=== PATIENT | male | born 1980 | race Caucasian/White ===

== ENCOUNTER → 2018-04-19 07:42 | Outpatient (CLI) | payer OTHER, SELFPAY ==
[2018-04-19 08:36] LABS: Basophils # 0.1 K/mm3 (0-0.2); Basophils % 1.1 % (0.1-2.0); Eosinophils # 0.2 K/mm3 (0.0-0.4); Eosinophils % 2.6 % (0.1-12.0); Hematocrit 47.9 % (42.0-52.0); Lymphocytes # 2.1 K/mm3 (0.7-4.5); Mean Corpuscular HGB Conc 33.5 g/dL (31.8-35.4); Mean Corpuscular Hemoglobin 29.7 pg (27.0-31.2); Mean Corpuscular Volume 88.6 fl (80-94); Mean Platelet Volume 8.2 fl (7.4-10.4); Monocytes # 0.5 K/mm3 (0.1-1.0); Monocytes % 8.9 % (1.7-9.3); Neutrophils # 3.2 K/mm3 (1.8-7.8); Neutrophils % 52.4 % (37.0-80.0); Platelet Count 207 K/mm3 (142-424); Red Cell Distribution Width 12.5 % (11.5-17.5); White Blood Count 6.1 K/mm3 (4.8-10.8)
[2018-04-19 08:54] LABS: Hemoglobin A1C 5.5 % (0.0-7.0)
[2018-04-19 09:57] LABS: Alanine Aminotransferase 93 U/L (12-78); Albumin Level 3.8 gm/dL (3.4-5.0); Albumin/Globulin Ratio 1.3 (1.1-1.8); Alkaline Phosphatase 94 U/L (46-116); Anion Gap 11.4 mEq/L (5-15); Aspartate Amino Transferase 33 U/L (15-37); Bilirubin,Total 0.5 mg/dL (0.2-1.0); Blood Urea Nitrogen 10 mg/dL (7-18); Carbon Dioxide 26 mmol/L (21.0-32.0); Chloride 107 mmol/L (98-107); Chol/HDL Ratio 4.9 (1-3.5); Cholesterol 172 mg/dL (140-200); Creatinine,Serum 0.84 mg/dL (0.70-1.30); Estimated Glomerular Filt Rate 103 ml/min (>60); GFR (African American) 125 ML/MIN (>60); Globulin 2.9 gm/dl (1.3-3.2); Glucose 98 mg/dL (74-106); HDL Cholesterol 35 mg/dL (27-67); LDL Cholesterol 112 mg/dL (0-130); Potassium 4.4 mmoL/L (3.5-5.1); Sodium 140 mmol/L (136-145); T4 (Thyroxine) 8.2 ug/dl (4.7-13.3); Thyroid Stimulating Hormone 1.36 uIU/ml (0.358-3.740); Total Protein,Serum 6.7 gm/dL (6.4-8.2); Triglycerides 123 mg/dL (30-200); VLDL Cholesterol 25 mg/dL (0-40)
[2018-04-24 06:55] LABS: H. pylori Breath Test Negative (Negative); Vitamin D 25 Hydroxy 28.6 ng/mL (30.0-100.0)
== END ==
PROVIDERS: Visit Provider Nurse Practitioner Family
DX: R74.8 Abnormal levels of other serum enzymes (principal); R10.9 Unspecified abdominal pain; R53.83 Other fatigue; E78.2 Mixed hyperlipidemia
CPT/HCPCS: 36415; 80053; 80061; 82652; 83013; 83036; 84436; 84443; 85025

== ENCOUNTER → 2018-04-23 07:47 | Outpatient (CLI) | payer OTHER, SELFPAY ==
--- NOTE | 2018-04-23 07:48 | US_ITS ---
US gallbladder HISTORY: ITS.REASON: upper rt quad pain ORDERING PHYSICIAN: Frantz Mackay PATIENT AGE: 38 years Comparison: None FINDINGS: PANCREAS: Unremarkable. No obvious mass or abnormal fluid collection. No ductal dilatation LIVER: No focal liver lesions demonstrated. Increase echogenicity consistent with fatty liver. No intrahepatic biliary ductal dilatation evident RIGHT KIDNEY: Unremarkable. Normal size and echogenicity. No hydronephrosis GALLBLADDER: No gallstones, gallbladder wall thickening, pericholecystic fluid, or biliary dilatation. IMPRESSION: Negative gallbladder/right upper quadrant ultrasound Fatty liver
== END ==
PROVIDERS: PCP Nurse Practitioner Family; Visit Provider Nurse Practitioner Family
DX: R10.11 Right upper quadrant pain (principal)
CPT/HCPCS: 76705

== ENCOUNTER → 2019-03-13 15:08 | Outpatient (CLI) | payer OTHER, SELFPAY ==
--- NOTE | 2019-03-13 15:11 | US_ITS ---
US extremity LT limited HISTORY: ITS.REASON: enlarged lymp node ORDERING PHYSICIAN: Frantz Mackay APRN PATIENT AGE: 38 years COMPARISON: None TECHNIQUE: Routine ultrasound images of the left axilla were obtained. In the left axilla there is a somewhat ill-defined hypoechoic area measuring 2.7 cm. Air is no well-defined cortex of a lymph node or fatty hilum. There is also no associated vascular flow typically associated with a lymph node. This is fairly similar to some of the surrounding axillary fatty tissue. IMPRESSION: Left axillary 2.7 cm subtle abnormality described is more likely a focal area fat perhaps a lipoma. This does not appear to be consistent with a enlarged suspicious lymph node although, following clinical follow-up I would suggest if further evaluation is necessary CT scan of the upper chest to include the left axilla.
== END ==
PROVIDERS: PCP Nurse Practitioner Family; Visit Provider Nurse Practitioner Family
DX: R59.0 Localized enlarged lymph nodes (principal)
CPT/HCPCS: 76882

== ENCOUNTER → 2019-11-09 13:59 | Outpatient (CLI) | payer BC, SELFPAY ==
--- NOTE | 2019-11-09 14:04 | XR_ITS ---
PROCEDURE: XR CHEST 2V CLINICAL HISTORY: HEMOPTYSIS COMPARISON: No exams were available for comparison FINDINGS: The cardiomediastinal silhouette and pulmonary vascularity are within normal limits. The lungs are clear without infiltrates, suspicious nodules, or pleural effusions. No acute bony abnormalities. IMPRESSION: No acute findings. Dictated by: Yosef Curry MD 11/09/2019 15:38 Electronically signed by Yosef Curry MD in [place] 11/09/2019 15:38
== END ==
PROVIDERS: PCP Internal Medicine Adolescent Medicine; Visit Provider Internal Medicine Adolescent Medicine
DX: M54.5 Low back pain (principal); R04.2 Hemoptysis
CPT/HCPCS: 71046

== ENCOUNTER 2020-11-24 16:05 | Emergency (ER) | payer BC, SELFPAY ==
[2020-11-24 16:42] VITALS: BP 119/74; PULSE 77; RESP 14; TEMP 37.1; O2SAT 97; BMI 26.6
--- NOTE | 2020-11-24 17:21 | PC.NURSE ---
pt walked out of [facility] at 1701. tried to follow after pt but he was already gone. we have waited 20 minutes to see if he returns. no sign of pt. provider had not been in to see the pt yet.
[2020-11-24 17:23] VITALS: BP 000/00; PULSE 0; RESP 0; TEMP -17.7; TEMP 0; O2SAT 0
== END 2020-11-24 17:01 | disposition left against medical advice (07) ==
PROVIDERS: Emergency Provider Nurse Practitioner; PCP Internal Medicine Adolescent Medicine
DX: M54.5 Low back pain (principal); R10.31 Right lower quadrant pain; F17.210 Nicotine dependence, cigarettes, uncomplicated

== ENCOUNTER → 2021-08-14 07:46 | Outpatient (CLI) | payer BC, SELFPAY ==
[2021-08-14 08:30] VITALS: PULSE 72; PULSE 76
== END ==
PROVIDERS: PCP Internal Medicine Adolescent Medicine; Visit Provider Internal Medicine Adolescent Medicine
DX: R06.02 Shortness of breath (principal)
CPT/HCPCS: 94060; 94640; 94726; 94729

== ENCOUNTER → 2021-11-23 07:55 | Outpatient (CLI) | payer BC, SELFPAY | PROVIDERS: Visit Provider Surgery | DX: Z01.812 Encounter for preprocedural laboratory examination (principal); Z11.52 Encounter for screening for COVID-19; Z12.11 Encounter for screening for malignant neoplasm of colon | CPT/HCPCS: C9803; U0003; U0005 ==

== ENCOUNTER 2021-11-24 08:35 | Day surgery (SDC) | payer BC, SELFPAY ==
[2021-11-22 11:14] VITALS: BMI 31.9
--- NOTE | 2021-11-24 08:42 | P.PN_ITS ---
[facility] Anesthesia Checklist - Patient Identification Patient Identification: Arm Band - Structural Data Admitted From: Home Planned Operative Procedure/s: Colonoscopy Consent for Planned Operative Procedure(s) Verified: Yes - NPO Status Verified Time NPO: 00:00 - Airway Assessment C-Spine Mobility Assessed: Yes TMJ Mobility Assessed: Yes Dentition: Poor Dentition - Neurological Assessment Level of Consciousness: Awake Hx Seizures: No Numbness or tingling in extremities: No - Anesthesia Plan Anesthesia Risk discussed: Yes Anesthesia Plan: Verified ASA Class: II Anesthesia Type: MAC [facility] History I have reviewed the patient's past medical history: Yes Medical History: Reports:: Asthma, Gastroesophageal Reflux Disease(GERD), Migraine Denies:: Anxiety, Cancer, Depression, Diabetes Mellitus Type 1, Diabetes Mellitus Type 2, Internal Pacemaker, MRSA, Seizures *Have you ever received a pneumonia vaccine?: No *Have you received a flu vaccine this season?: No Anesthesia experience/problems:: None Laterality Cases: Right: Arthroscopy Knee Other Surgeries: Yes: Other. No: Pacemaker Amputation: No Fractures: No - *Social History Last grade of school completed: Advanced degree Smoking Status: Current every day smoker Tobacco Type: cigarettes # Packs/Day (cigarettes): 1 Alcohol Intake: never Alcohol Intake Frequency:: holidays/special occasions only Substance Use Type: denies use *Occupational Status:: employed Housing: house Household Members: family *Travel in the last 8 weeks: None - Psychiatric History Pschychiatric History:: Denies:: Anxiety, Depression Family Hx:: No significant family history
[2021-11-24 08:54] VITALS: BP 130/79; PULSE 75; RESP 18; TEMP 36.6; O2SAT 96
[2021-11-24 09:31] VITALS: O2SAT 96
--- NOTE | 2021-11-24 10:12 | HMH.SCOPE ---
- Procedure: Date: 11/24/21 Patient Date of :: 1980 Procedure Performed:: Total colonoscopy with polypectomy Indications:: Patient is a 41-year-old male referred by Dr. Agee for colonoscopy for rectal bleeding. He states that he has had some bleeding when he has a bowel movement for about 2 years. However this has become more significant recently. He does describe some soreness and burning when he has the symptoms. He also states that preceding the symptoms he has somewhat flatter stools. Performing Provider:: Herve Ko MD Referring Provider:: Rocky Agee MD Sedation:: MAC sedation Procedure:: Patient was taken to endoscopy procedure room. He was positioned in lateral decubitus position. Adequate intravenous sedation was achieved with anesthesia titration propofol. Digital exam was performed which revealed no evidence of any obvious fissure. Variable stiffness Olympus colonoscope was inserted via the anus. Is advanced to the cecum. Ileocecal valve and appendiceal orifice were clearly identified. Colonic preparation was fair with some liquid stools and extensive bubbles through the colon. Thorough irrigation and suctioning allowed for adequate visualization. Colonoscope was slowly withdrawn through the colon. He had a small diminutive sigmoid polyp which was removed with biopsy forceps. There was a distal sigmoid somewhat pedunculated appearing polyp removed with cold snare. Hemoclip was deployed to ensure hemostasis. Initially this polyp could not be retrieved and the colonoscope was readvanced to the right colon and slowly withdrawn. Ultimately the polyp was able to be retrieved in this manner as it had migrated retrograde. Rectosigmoid region there were several hyperplastic appearing polyps which were removed with cold biopsy forceps. Total of 3 polyps removed. There was a small rectal polyp removed with cold snare. Retroflexion within the rectum revealed internal hemorrhoids with some minor prolapse, nonbleeding. Colonoscope was withdrawn. Findings:: Polyps as noted above Rare sigmoid diverticulosis Internal hemorrhoids with minor prolapse Recommendations:: Source of his symptoms is likely hemorrhoids. These appear to be relatively minimal with some prolapse and likely amenable to medical treatment if necessary. Follow-up colonoscopy regarding polyps pending pathology. Complications:: None immediately apparent Estimated blood obtained (mL): 3
[2021-11-24 10:14] VITALS: BP 140/92; PULSE 87; RESP 16; TEMP 36.3; O2SAT 94
[2021-11-24 10:24] VITALS: BP 127/79; PULSE 79; RESP 18; TEMP 36.3; O2SAT 95
[2021-11-24 10:34] VITALS: BP 116/74; PULSE 80; RESP 18; TEMP 36.3; O2SAT 94
[2021-11-24 10:50] VITALS: BP 119/78; PULSE 71; RESP 18; TEMP 36.3; O2SAT 97
== END 2021-11-24 10:50 | disposition home or self-care (01) ==
LOC: OUTP 08:36
PROVIDERS: PCP Internal Medicine Adolescent Medicine; Visit Provider Surgery
PROC: 0DJD8ZZ Inspection of Lower Intestinal Tract, Via Natural or Artificial Opening Endoscopic (ICD-10-PCS; CPT 45385; principal; 2021-11-24 09:30)
DX: Z12.11 Encounter for screening for malignant neoplasm of colon (principal); K63.5 Polyp of colon; K57.32 Diverticulitis of large intestine without perforation or abscess without bleeding; K64.1 Second degree hemorrhoids; K62.1 Rectal polyp; J45.909 Unspecified asthma, uncomplicated; K21.9 Gastro-esophageal reflux disease without esophagitis; G43.909 Migraine, unspecified, not intractable, without status migrainosus; Z72.0 Tobacco use
CPT/HCPCS: 45385

== ENCOUNTER 2022-06-04 07:59 | Emergency (ER) | payer BC, SELFPAY ==
--- NOTE | 2022-06-04 08:16 | EXP.UTC ---
Discharge Plan Disposition Patient Disposition: Home, Self-Care Condition: Good Prescriptions Prescriptions: No Action omeprazole 40 mg capsule,delayed release(DR/EC) 40 mg PO DAILY fluticasone propion-salmeterol 28 PUFFS/50 MCG inhaler 1 inh IH BID peg 3350-electrolytes 4,000 ML recon soln 240 ml PO Q10M Rx Instructions: until fecal effluent is clear Referrals Follow up/Referrals: Matias Agee MD [Primary Care Provider] - See instructions Activity Restrictions/Add. Instructions Additional Instructions/Restrictions: *Monitor Temp, Over the counter Motrin or Tylenol as directed/as needed Tylenol every 4 hours and Motrin every 6 hours (as long as your family doctor has told you that you can take it) for fever or pain. and straight to ER if unable to lower temp less than 101.0 after medication given *Warm salt water gargles may help to soothe the throat *Throat Lozenges? *Warm fluids like tea with honey may help to soothe the throat? *Sleep elevated *Humidifier/Vaporizer Follow up IMMEDIATELY for new or worsening symptoms or no Noticeable improvement over the next 48-72 hours. 911 for difficulty breathing or swallowing You were tested for today for COVID19 your test result should be back in the next 24-48 hours, you may check your result on the [facility] Make sure to take your Vitamins Vit. C Vit D and Zinc if you can take them Clinical Impressions Clinical Impression: Viral syndrome, Encounter for laboratory testing for COVID-19 virus Stand Alone Forms Stand Alone Forms: Work/School Release Instructions Patient Instructions: Coronavirus Disease 2019, Preventing the Spread of Coronavirus Discharge Instructions, DI for Fever (Symptom) -- Adult Discharge ED Provider: Ro Phillip [facility] [place] HPI General Stated complaint: fever,chills,body aches Time Seen by Provider: 06/04/22 08:17 History of Present Illness Provider Complaint: Patient states that he has been having body aches, chills, fever, and headache States that he took an at home COVID test and it was positive but his work will not accept those so he had to come in and get tested here Related Data Home Medications Medication Instructions Recorded Confirmed omeprazole 40 mg capsule,delayed 40 mg PO DAILY GERD 05/14/19 11/24/21 release fluticasone 250 mcg-salmeterol 50 1 inh IH BID Asthma 11/22/21 11/24/21 mcg/dose blistr powdr for inhalation peg 3350-electrolytes 236 240 ml PO Q10M prep 11/22/21 11/24/21 gram-22.74 gram-6.74 gram-5.86 gram solution Allergies Allergy/AdvReac Type Severity Reaction Status Date / Time No Known Allergies Allergy Verified 11/24/21 08:52 PFSH PFSH Social History Smoking Status: Current every day smoker tobacco type: cigarettes packs per day: 1 second hand exposure: Yes alcohol intake: never substance use type: denies use current occupational status: employed Travel in the last 8 weeks: None household members: family housing: house 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 caffeine: Yes ROS Obtained: Yes All systems reviewed & no additional complaints except as documented and Yes Systems reviewed as appropriate & no additional complaints except as documented Constitutional Constitutional: Reports system reviewed and no additional complaints, except as documented, Reports as per HPI, Reports body ache, Reports chills, Reports fever(s) and Reports headache(s) ENT Ears, Nose, Mouth, and Throat: Reports system reviewed and no additional complaints, except as documented, Reports as per HPI and Reports headache(s) Cardiovascular Cardiovascular: Reports system reviewed and no additional complaints, except as documented and Reports as per HPI Respiratory Respiratory: Reports system reviewed and no additional complaints, except as documented, Reports as per HPI, Denies shortness of breath, Denies chest congestion and Denies cough Neurol
[2022-06-04 08:21] VITALS: BP 129/84; PULSE 73; RESP 16; TEMP 37.3; O2SAT 98; BMI 29.5
[2022-06-04 08:24] VITALS: BP 138/84; PULSE 73; RESP 16; TEMP 37.3
== END 2022-06-04 08:24 | disposition home or self-care (01) ==
PROVIDERS: Emergency Provider Nurse Practitioner; PCP Internal Medicine Adolescent Medicine
DX: U07.1 COVID-19 (principal); F17.210 Nicotine dependence, cigarettes, uncomplicated
CPT/HCPCS: 99212; C9803; G0463; U0003; U0005

== ENCOUNTER 2023-06-06 08:00 | Emergency (ER) | payer BC, SELFPAY ==
[2023-06-06 08:05] VITALS: BP 113/86; PULSE 82; RESP 20; TEMP 36.7; O2SAT 98; BMI 29.5
--- NOTE | 2023-06-06 08:20 | XR_ITS ---
FINAL REPORT CLINICAL HISTORY: pain in lower back COMPARISON: None FINDINGS: 3 views of the lumbar spine were obtained. There is no evidence of fracture or dislocation. There are mild hypertrophic changes of degenerative disc disease. There is mild to moderate anterior osteophyte formation at L4-5 and L5-S1. IMPRESSION: Degenerative changes without acute bony abnormality. Reviewed, Interpreted and Dictated by Markell Clemente MD Transcribed by Angeline Oropeza Authenticated and [facility]
--- NOTE | 2023-06-06 08:21 | EXP.UTC ---
Discharge Plan Disposition Patient Disposition: Home, Self-Care Condition: Good Prescriptions Prescriptions: New etodolac 200 mg capsule 200 mg PO Q8H PRN (Reason: pain) Qty: 20 0RF cyclobenzaprine 10 mg tablet 10 mg PO TID PRN (Reason: muscle spasm) Qty: 15 0RF methylprednisolone [Medrol (Jose)] 4 mg tablets,dose pack See Rx Instructions .Route .COMPLEX 6 Days Qty: 21 0RF Rx Instructions: taper pack; No Action omeprazole 40 mg capsule,delayed release(DR/EC) 40 mg PO DAILY fluticasone propion-salmeterol 28 PUFFS/50 MCG inhaler 1 inh IH BID peg 3350-electrolytes 4,000 ML recon soln 240 ml PO Q10M Rx Instructions: until fecal effluent is clear Referrals Follow up/Referrals: Brooks Lopez MD [Primary Care Provider] - See instructions Activity Restrictions/Add. Instructions Additional Instructions/Restrictions: *Etodolac vesta 8 hours with meal as needed for pain/inflammation *Remember you had a Toradol shot in the clinic today, which is similar to Etodolac so do not start for the next 8 hours *Not additional anti-inflammatory like Ibuprofen, motrin, aleve, advil with the above amount of Etodolac. You can still take Tylenol every 4 hours as needed if you need something else for pain *Ice 20 minutes every 2 hours for the first 48 hours after the initial injury followed by moist heat every 20 minutes 3-4 times a day to affected area *Muscle relaxer every 8 hours as needed for muscle spasms but remember, it WILL cause drowsiness You cannot take it and drive, operate machinery or care for small children. Start oral Medrol Dose pack tomorrow *Keep this area active, no movement leads to more stiffness, However take it easy and avoid heavy lifting pushing or pulling *Follow up with you family doctor if no improvement for further treatment Clinical Impressions Clinical Impression: Back pain Qualifiers: Back pain location: low back pain Chronicity: acute Back pain laterality: right Sciatica presence: unspecified whether sciatica present Qualified Code(s): M54.50 - Low back pain, unspecified Stand Alone Forms Stand Alone Forms: Work/School Release Instructions Patient Instructions: Low Back Pain, DI for Low Back Pain Discharge ED Provider: Ro Phillip [facility] HPI General Stated complaint: Back pain radiating, pain in right leg Mode of Arrival: Ambulatory Source of Information: Patient Limitations: No Limitations Time Seen by Provider: 06/06/23 08:21 Description of Symptoms (Recalled from Triage Doc. by RN): PATIENT C/O LOWER BACK PAIN THAT IS MAINLY ON RIGHT SIDE THAT RADIATES AROUND TO FRONT. HE STATES HE HAS HAD MILD BACK PAIN X 1 WEEK, BUT DID A TWISTING MOTION WHILE GETTING SOMETHING OUT OF TRUNK OF CAR LAST NIGHT AND PAIN BECAME MORE SEVERE. HEENT Symptoms (Recalled from RN notes): No Resp Symptoms (Recalled from RN notes): No Skin Symptoms (Recalled from RN notes): No MS Symptoms (Recalled from RN notes): Yes Functional Status (Recalled from RN notes): WNL History of Present Illness Provider Complaint: Patient states that he has a bad back States that he has been having mild pain in his lower back mainly on the right side when last night he pulled something out of the trunk of his car and he did a twisting motion and the pain become more severe States that it is in his lower back and goes to the right side into his upper leg States that he wasnt able to sleep much last night due to the pain so he came in this am to get checked Denies loss of control of bowel or bladder Related Data Home Medications Medication Instructions Recorded Confirmed omeprazole 40 mg capsule,delayed 40 mg PO DAILY GERD 05/14/19 06/06/23 release fluticasone 250 mcg-salmeterol 50 1 inh IH BID Asthma 11/22/21 11/24/21 mcg/dose blistr powdr for inhalation peg 3350-electrolytes 236 240 ml PO Q10M prep 11/22/21 11/24/21 gram-22.74 gram-6.74 gram-5.86 gram solution Pre
[2023-06-06 09:06] VITALS: BP 113/86; PULSE 82; RESP 20; TEMP 36.7; O2SAT 98
== END 2023-06-06 09:10 | disposition home or self-care (01) ==
PROVIDERS: Emergency Provider Nurse Practitioner; PCP Family Medicine
DX: M54.50 Low back pain, unspecified (principal); F17.210 Nicotine dependence, cigarettes, uncomplicated; X50.1XXA Overexertion from prolonged static or awkward postures, initial encounter
CPT/HCPCS: 72100; 96372; 99212; 99214; G0463

== ENCOUNTER 2024-03-07 12:28 | Outpatient (CLI) | payer BC, SELFPAY ==
--- NOTE | 2024-03-07 | XR_ITS ---
PROCEDURE INFORMATION: Exam: XR Left Foot Exam date and time: 03/07/2024 12:37 PM Age: 43 years old Clinical indication: Pain; Heel; Left TECHNIQUE: Imaging protocol: Radiologic exam of the left foot. Views: 3 or more views. COMPARISON: No relevant prior studies available. FINDINGS: Bones/joints: Small posterior calcaneal bone spur. Soft tissues: Normal. IMPRESSION: Small posterior calcaneal bone spur.
== END 2024-03-07 23:59 | disposition home or self-care (01) ==
PROVIDERS: PCP Family Medicine; Visit Provider Family Medicine
DX: M79.672 Pain in left foot (principal); M72.2 Plantar fascial fibromatosis
CPT/HCPCS: 73630

== ENCOUNTER 2024-05-05 07:03 | Emergency (ER) | payer BC, SELFPAY ==
--- NOTE | 2024-05-05 07:10 | PC.NURSE ---
Dr. Moreno at [facility] for pt eval
[2024-05-05 07:15] VITALS: BMI 27.9
--- NOTE | 2024-05-05 07:16 | US_ITS ---
FINAL REPORT TECHNIQUE: Ultrasound images of the testicles were obtained bilaterally. Color Doppler images were obtained. CLINICAL HISTORY: r/o torsion COMPARISON: None FINDINGS: The testicles are normal in size and echotexture bilaterally. Arterial flow is identified bilaterally. A varicocele is present in the left scrotum. There is a echogenic focus with posterior acoustical shadowing on the inner surface of the wall of the left scrotum, that has an appearance most consistent with a calcification. This may be secondary to prior posttraumatic change. There are small hydroceles bilaterally. IMPRESSION: No evidence of testicular mass or torsion. Echogenic focus as described above on the inner surface of the wall of the left scrotum, which appears to represent a dense calcification. This may be secondary to prior posttraumatic change. Left sided varicocele is present. Reviewed, Interpreted and Dictated by Markell Clemente MD Transcribed by Lamar Goldstein Authenticated and [facility]
[2024-05-05 07:22] LABS: Lactate Venous 1.9 mmol/L (0.4-2.0); VBG Base Excess -0.5 mmol/L (-2.4-2.3); VBG HCO3 23.9 mmol/L (23-30); VBG Oxygen Saturation 99.2 % (50-70); VBG PCO2 37.3 mmol/L (35-51); VBG PH 7.42 mmol/L (7.31-7.41); VBG PO2 148.8 mmol/L (28-40)
--- NOTE | 2024-05-05 07:22 | HMH.EDGENADL ---
Discharge Plan Disposition Patient Disposition: Home, Self-Care Condition: Good Prescriptions Prescriptions: New tamsulosin [Flomax] 0.4 mg capsule 0.4 mg PO DAILY Qty: 7 0RF ketorolac 10 mg tablet 10 mg PO Q8H PRN (Reason: pain) 5 Days Qty: 15 0RF ondansetron 4 mg tablet,disintegrating 4 mg PO Q6H PRN (Reason: nausea and vomiting) Qty: 10 0RF oxycodone 5 mg tablet 5 mg PO Q6H PRN (Reason: pain) Qty: 10 0RF No Action omeprazole 40 mg capsule,delayed release(DR/EC) 40 mg PO DAILY fluticasone propion-salmeterol 28 PUFFS/50 MCG inhaler 1 inh IH BID peg 3350-electrolytes 4,000 ML recon soln 240 ml PO Q10M Rx Instructions: until fecal effluent is clear etodolac 200 mg capsule 200 mg PO Q8H PRN (Reason: pain) Qty: 20 0RF cyclobenzaprine 10 mg tablet 10 mg PO TID PRN (Reason: muscle spasm) Qty: 15 0RF methylprednisolone [Medrol (Jose)] 4 mg tablets,dose pack See Rx Instructions .Route .COMPLEX 6 Days Qty: 21 0RF Rx Instructions: taper pack; Referrals Follow up/Referrals: Brooks Lopez MD [Primary Care Provider] - See instructions Activity Restrictions/Add. Instructions Additional Instructions/Restrictions: Call your family doctor to establish care for this visit to the emergency department and schedule follow-up within 48 hours to ensure improvement. If you have any worsening of your condition or any other concerning signs or symptoms, return to the emergency department or your primary care doctor for further evaluation. Meds as prescribed. Clinical Impressions Clinical Impression: Calcium nephrolithiasis Instructions Patient Instructions: DI for Urinary Tract Infection (UTI), DI for Urinary Tract Infection in Children Print Language Print Language: Gambian Discharge ED Provider: Eugene Moreno General Adult HPI General Chief complaint: Urogenital-Male Stated complaint: lower abd, back pain, nausea Time Seen by Provider: 05/05/24 07:18 History of Present Illness HPI narrative: Please note that above description of symptoms, in this electronic medical record under categorization of recalled from ER triage doctor by RN are reflective of an initial nursing assessment, however, is not reflective of my full history and physical exam that was personally taken and clarified. Consequentially, this preceding description of symptoms, which may include the patient's categorized chief complaint in the EMR, do not reflect my personal clinical impression, and the ultimate description of history of present illness and patient stated complaints should be deferred to this section of the note. Unless stated otherwise or congruent with this section of the note, additional signs, symptoms, or incongruence should be interpreted as inaccurate with my clinical impression. Related Data Home Medications ?Medication ?Instructions ?Recorded ?Confirmed omeprazole 40 mg capsule,delayed 40 mg PO DAILY GERD 05/14/19 06/06/23 release fluticasone 250 mcg-salmeterol 50 1 inh IH BID Asthma 11/22/21 11/24/21 mcg/dose blistr powdr for inhalation peg 3350-electrolytes 236 240 ml PO Q10M prep 11/22/21 11/24/21 gram-22.74 gram-6.74 gram-5.86 gram solution Previous Rx's ?Medication ?Instructions ?Recorded cyclobenzaprine 10 mg tablet 10 mg PO TID PRN muscle spasm #15 06/06/23 tabs etodolac 200 mg capsule 200 mg PO Q8H PRN pain #20 caps 06/06/23 methylprednisolone 4 mg tablets in See Rx Instructions .Route 06/06/23 a dose pack (Medrol (Jose)) .COMPLEX 6 days #21 tabs ketorolac 10 mg tablet 10 mg PO Q8H PRN pain 5 days #15 05/05/24 tabs ondansetron 4 mg disintegrating 4 mg PO Q6H PRN nausea and 05/05/24 tablet vomiting #10 tabs oxycodone 5 mg tablet 5 mg PO Q6H PRN pain #10 tabs 05/05/24 tamsulosin 0.4 mg capsule (Flomax) 0.4 mg PO DAILY #7 caps 05/05/24 Allergies Allergy/AdvReac Type Severity Reaction Status Date / Time No Known Allergies Allergy Verified 06/04/22 08:23 [facility] Disclaimer: The information contained in this section may have been updated after the patient was seen, as this information can be updated by other users. 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 caffeine: Yes ROS Obtained: Yes All systems reviewed & no additional complaints except as documented Physical Exam General General appearance: alert and in distress Head Head exam: atraumatic and normocephalic Eye Eye exam: Present normal appearance, PERRL and EOMI Neck Neck exam: Present normal inspection, full ROM and trachea midline Respiratory Respiratory exam: Absent respiratory distress, wheezes, stridor, accessory muscle use or prolonged expiratory phase Cardiovascular Cardiovascular exam: Present other (Pulses equal symmetric in upper and lower extremities) Abdominal Exam Abdominal exam: Present soft; Absent distention, tenderness or pulsatile mass Extremities Exam Extremities exam: Absent edema Neurological Exam Neurological exam: Present alert, oriented X3 and CN II-XII intact; Absent motor sensory deficit Skin Skin exam: Present warm and dry; Absent diaphoresis or erythema Medical Decision Making Medical Records Medical records reviewed: Yes I reviewed the patient's medical records. Mikey Inquiry Pt receiving controlled substance: No Mikey was queried for this patient: No Vital Signs: 05/05/24 07:27 05/05/24 07:37 05/05/24 09:35 Temperature 98.1 F Temperature Source Oral Pulse Rate 67 52 L Pulse Rate [Left Radial] 102 H Respiratory Rate 20 Blood Pressure 139/88 126/82 Blood Pressure [Right Arm] 130/84 Blood Pressure Mean 105 99 Blood Pressure Mean [Right Arm] 99 Blood Pressure Source Blood Pressure Position 02 Sat by Pulse Oximetry 96 99 97 Oxygen Delivery Method Room Air Room Air Room Air 05/05/24 10:34 Temperature 98.2 F Temperature Source Oral Pulse Rate 60 Pulse Rate [Left Radial] Respiratory Rate 20 Blood Pressure 136/68 Blood Pressure [Right Arm] Blood Pressure Mean Blood Pressure Mean [Right Arm] Blood Pressure Source Automatic Cuff Blood Pressure Position Sitting 02 Sat by Pulse Oximetry Oxygen Delivery Method Room Air Lab Data Lab Results 05/05/24 07:15: WBC 11.7 H, RBC 5.44, Hgb 16.3, Hct 50.5, MCV 92.9, MCH 30.0, MCHC 32.3, RDW 13.4, Plt Count 278, MPV 8.0, Neut % (Auto) 48.9, Lymph % (Auto) 37.3, Ross % (Auto) 9.3, Eos % (Auto) 3.4, Baso % (Auto) 1.1, Neut # (Auto) 5.7, Lymph # (Auto) 4.4, Ross # (Auto) 1.1 H, Eos # (Auto) 0.4, Baso # (Auto) 0.1, Sodium 140, Potassium 4.0, Chloride 110 H, Carbon Dioxide 22, Anion Gap 12.0, BUN 7 L, Creatinine 0.90, Estimated Creat Clear 125, Estimated GFR 92, Est GFR ( Amer) 111, Glucose 107 H, Calcium 8.9, Total Bilirubin 0.6, AST 35, ALT 37, Alkaline Phosphatase 76, Total Protein 7.2, Albumin 4.6, Globulin 2.6, Albumin/Globulin Ratio 1.8 05/05/24 07:16: Urine Color Yellow, Urine Appearance Clear, Urine pH 6.0, Ur Specific [place] >= 1.030, Urine Protein 1+, Urine Glucose (UA) Negative, Urine Ketones Negative, Urine Blood 3+, Urine Nitrate Negative, Urine Bilirubin 1+ A, Urine Urobilinogen 0.2, Ur Leukocyte Esterase Negative, Urine RBC 20-50, Urine WBC Occasional, Ur Squamous Epith Cells Occasional, Urine Bacteria Trace, Hyaline Casts Occasional 05/05/24 07:18: VBG pH 7.42 H, VBG pCO2 37.3, VBG pO2 148.8 H, VBG HCO3 23.9, VBG Total CO2 25.0, VBG O2 Saturation 99.2 H, VBG Base Excess -0.5, VBG Lactic Acid 1.9 05/05/24 07:15 05/05/24 07:15 Orders (Tests/Meds): ED MEDICATIONS Discontinued Medications Generic Name Dose Route Start Last Admin Trade Name Freq PRN Reason Stop Dose Admin Hydromorphone HCl 1 mg 05/05/24 07:16 05/05/24 07:32 Hydromorphone 2mg/Ml Syringe IV 05/05/24 07:17 1 mg ONCE ONE Administration Lactated Ringer's 1,000 mls @ 999 mls/hr 05/05/24 07:19 05/05/24 07:32 Lactated Ringer's 1000 Ml Bag IV 05/05/24 08:19 999 mls/hr .Q1H1M ONE Administration Iopamidol 75 ml 05/05/24 09:17 05/05/24 09:18 Iopamidol-370 (76%);100ml Bottle IV 05/05/24 09:18 75 ml ONCE ONE Administration Ketorolac Tromethamine 15 mg 05/05/24 07:19 05/05/24 07:31 Ketorolac 30mg/Ml Vial IV 05/05/24 07:20 15 mg ONCE ONE Administration Ketorolac Tromethamine 15 mg 05/05/24 09:39 05/05/24 09:44 Ketorolac 30mg/Ml Vial IV 05/05/24 09:40 15 mg ONCE ONE Administration Ondansetron HCl 4 mg 05/05/24 07:19 05/05/24 07:32 Ondansetron 4mg/2ml Vial IV 05/05/24 07:20 4 mg ONCE ONE Administration Sodium Chloride 10 ml 05/05/24 09:17 05/05/24 09:18 Sodium Chloride 0.9% 10ml Syr (Rad Only) IV 05/05/24 09:18 10 ml ONCE ONE Administration ORDERS Category Date Time Status CT abdomen pelvis w con Stat Cat Scan 05/05/24 09:06 Taken Complete Blood Count Auto Diff Stat Lab 05/05/24 07:15 Completed Comprehensive Metabolic Panel Stat Lab 05/05/24 07:15 Completed Urinalysis and Microscopic Stat Lab 05/05/24 07:16 Completed Venous Blood Gas Stat RT 05/05/24 07:18 Completed US Testicular Stat Ultrasound 05/05/24 07:16 Completed Medical Decision Narrative: 44-year-old male no relevant medical history presenting with left testicular pain. Started about 45 minutes prior to arrival. States that it is in his left testicle, feels like everything is being pulled out. Patient states his last bowel movement was normal for him last night, no bleeding, burning, or any other urinary symptoms. No fevers or chills. Pain today is maximal in intensity at onset, associated with vomiting, diaphoresis. Has not noticed anything that makes the pain better. History was obtained via conversation with patient and significant other. On arrival, patient hemodynamically stable, alert, oriented x4, appropriate, GCS 15, moving all extremities spontaneously, pupils equal and reactive to light. Full physical exam performed and significant for patient is an obvious mild distress secondary to pain. Pale, diaphoretic, holding vomitus bag in his hand. Intermittently standing up, sitting down trying to get comfortable. No flank tenderness. No abdominal tenderness. exam normal. Cremasteric reflex intact, no testicular swelling, tenderness, or abnormality. Differential includes torsion, UTI, nephrolithiasis, testicular abscess, testicular fracture, hernia, among others. Patient placed on continuous cardiac monitoring and continuous pulse ox with initial blood pressure 139/88, heart rate 67, saturation 96% on room air. Patient was given 1 mg Dilaudid, 15 mg Toradol for symptomatic management and correction of underlying abnormalities. Workup independently interpreted and significant for mild leukocytosis, nonactionable chemistry. Mild respiratory alkalosis on VBG. Patient's urinalysis with blood and protein. On independent interpretation of imaging, nonactionable scrotal ultrasound. Because hematuria as well as negative ultrasound, CT scan was ordered. Patient has 1 mm stone at UVJ. See radiology read for full review of final results. On reevaluation, patient feeling much better, intermittently having these pains. Another 15 mg of Toradol was given. This most likely represents nephrolithiasis. Just prior to discharge, patient stating that he is in pain and feeling nauseated again, 5 mg oxycodone and 4 mg Zofran was administered. Because patient at baseline without signs or symptoms of clinical decompensation, deemed appropriate for discharge. Results were relayed to patient who voiced understanding and were agreeable to outpatient management and follow up. I discussed my clinical impression with patient and answered all questions. At this time, the evidence for any other entities in the differential is insufficient to warrant any further testing or ED observation. This was explained as well. Advisory was given that persistent or worsening symptoms require further evaluation. I confirmed the understanding of this discussion. Flomax, oxycodone, Toradol, Zofran sent to the pharmacy. Close return precautions given. Urology outpatient follow-up was recommended. Design Verification Engineer disclaimer Much of this encounter note is an electronic metal riveting machine operator spoken language to printed text. Electronic metal riveting machine operator of the spoken language may permit errors. Although I have reviewed the note, some errors may still exist. Critical Care Critical Care Time Critical Care Time: No
[2024-05-05 07:24] LABS: Basophils # 0.1 K/mm3 (0-0.2); Basophils % 1.1 % (0.1-2.0); Eosinophils # 0.4 K/mm3 (0.0-0.4); Eosinophils % 3.4 % (0.1-12.0); Hematocrit 50.5 % (42.0-52.0); Hemoglobin 16.3 g/dL (14.1-18.0); Lymphocytes # 4.4 K/mm3 (0.7-4.5); Lymphocytes % 37.3 % (10-50); Mean Corpuscular HGB Conc 32.3 g/dL (31.8-35.4); Mean Corpuscular Volume 92.9 fl (80-94); Monocytes # 1.1 K/mm3 (0.1-1.0); Monocytes % 9.3 % (1.7-9.3); Neutrophils # 5.7 K/mm3 (1.8-7.8); Neutrophils % 48.9 % (37.0-80.0); Platelet Count 278 K/mm3 (142-424); Red Blood Count 5.44 M/mm3 (4.60-6.20); Red Cell Distribution Width 13.4 % (11.5-17.5); White Blood Count 11.7 K/mm3 (4.8-10.8)
[2024-05-05 07:27] VITALS: BP 139/88; PULSE 67; O2SAT 96
--- NOTE | 2024-05-05 07:29 | PC.NURSE ---
Pt gone to RAD via wheelchair for u/s
[2024-05-05 07:30] LABS: Albumin Level 4.6 g/dl (3.5-5.0); Chloride 110 mmol/L (98-107); Sodium 140 mmol/L (136-145)
[2024-05-05] MEDS: KETOROLAC 30MG/ML VIAL 15 MG IV ×2 (07:31→09:44)
[2024-05-05] MEDS: LACTATED RINGERS 1000ML 1,000 ML 999 ML IV (07:32)
[2024-05-05] MEDS: ONDANSETRON 4MG/2ML VIAL 4 MG IV ×2 (07:32→11:37)
[2024-05-05] MEDS: HYDROMORPHONE 2MG/ML SYRINGE 1 MG IV (07:32)
[2024-05-05 07:33] LABS: Alanine Aminotransferase 37 U/L (12-78); Albumin/Globulin Ratio 1.8 (1.1-1.8); Alkaline Phosphatase 76 U/L (38-126); Aspartate Amino Transferase 35 U/L (17-59); Bilirubin,Total 0.6 mg/dl (0.2-1.3); Blood Urea Nitrogen 7 mg/dl (9-20); Calcium 8.9 mg/dl (8.4-10.2); Carbon Dioxide 22 mmol/L (22.0-30.0); Creatinine Clearance Estimated 125 mL/min (50-200); Estimated Glomerular Filt Rate 92 ml/min (>60); GFR (African American) 111 ML/MIN (>60); Globulin 2.6 g/dL (1.3-3.2); Glucose 107 mg/dl (74-100); Total Protein,Serum 7.2 g/dl (6.3-8.2)
[2024-05-05 07:37] VITALS: BP 130/84; PULSE 102; RESP 20; TEMP 36.7; O2SAT 99; BMI 15.2
--- NOTE | 2024-05-05 07:50 | PC.NURSE ---
Pt returned to room from RAD
[2024-05-05 08:29] LABS: Microscopic, Urine URINE MICROSCOPIC (MICROSCOPIC)
[2024-05-05 08:33] LABS: Appearance,Urine CLEAR (Clear); Blood, Urine 3+ (Negative); Color,Urine YELLOW (Yellow); Glucose,Urine (UA) Negative (Negative); Ketones,Urine Negative (Negative); Leukocyte Esterase,Urine Negative (Negative); Nitrate,Urine Negative (Negative); Protein,Urine 1+ (Negative); Specific Gravity, Urine >= 1.030 (1.005-1.030); Urobilinogen,Urine 0.2 EU/dl (0.2)
[2024-05-05 08:36] LABS: Bilirubin,Urine 1+ (Negative)
[2024-05-05 08:50] LABS: Bacteria,Urine Trace /lpf; Hyaline Casts,Urine Occasional #/lpf (0); RBC,Urine 20-50 #/hpf (0-3); Squamous Epithelial Cell,Urine Occasional #/hpf (0-5); WBC,Urine Occasional #/hpf (0-3)
--- NOTE | 2024-05-05 09:06 | CT_ITS ---
FINAL REPORT TECHNIQUE: After the administration of intravenous contrast, axial images were obtained through the abdomen and pelvis by computed tomography. The study was performed with techniques to keep radiation dose as low as reasonably achievable, (ALARA). Individual dose reduction techniques using automated exposure control or adjustment of mA and/or kV according to the patient's size were employed. CLINICAL HISTORY: L groin pain and hematuria COMPARISON: None FINDINGS: Abdomen: There is a noncalcified nodule in the inferior right upper lobe measuring 6 mm and best seen on image 6 of series 3. There is mild fatty infiltration of the liver. The gallbladder is contracted. The spleen, pancreas, adrenals and kidneys appear unremarkable. The aorta is normal in caliber. There is no free fluid or adenopathy. Pelvis: The appendix is normal. Scattered diverticula are seen in the sigmoid colon. There is a 2 mm stone in the left UVJ best seen on image 114 of series 3. There is minimal prominence of the left ureter. The urinary bladder is unremarkable. There is no free fluid or adenopathy. There are advanced changes of degenerative disc disease in the lower lumbar spine. There is high-grade bilateral neuroforaminal compromise at L5-S1. IMPRESSION: 2 mm stone left UVJ with minimal prominence of the left ureter. Noncalcified right upper lobe nodule. Recommend CT chest in 6 to 12 months. Reviewed, Interpreted and Dictated by Markell Clemente MD Transcribed by Angeline Oropeza Authenticated and [facility]
[2024-05-05] MEDS: SODIUM CHLORIDE 0.9% 10ML SYR (RAD ONLY) 10 ML IV (09:18)
[2024-05-05] MEDS: IOPAMIDOL-370 (76%);100ML BOTTLE 75 ML IV (09:18)
[2024-05-05 09:35] VITALS: BP 126/82; PULSE 52; O2SAT 97
[2024-05-05 10:34] VITALS: BP 136/68; PULSE 60; RESP 20; TEMP 36.8; O2SAT 98
[2024-05-05 10:51] VITALS: BP 138/68; PULSE 60; O2SAT 99
--- NOTE | 2024-05-05 10:58 | PC.NURSE ---
pt states I'm not leaving here unless I get pain meds to go home with. I will sit here all day until I pass it. Dr Moreno aware.
--- NOTE | 2024-05-05 11:09 | PC.NURSE ---
Dr. Moreno at to speak with pt/family
--- NOTE | 2024-05-05 11:10 | PC.NURSE ---
dr ernandez at bedside talking to pt.
[2024-05-05] MEDS: OXYCODONE 5MG IMMEDIATE RELEASE TABLET 5 MG PO (11:37)
[2024-05-07 07:16] LABS: Neisseria gonorrhoeae, NAA Negative (Negative)
== END 2024-05-05 11:47 | disposition home or self-care (01) ==
PROVIDERS: Emergency Provider Emergency Medicine; PCP Family Medicine
DX: N50.812 Left testicular pain (principal); N20.1 Calculus of ureter; M54.59 Other low back pain
CPT/HCPCS: 74177; 76870; 80053; 81001; 82803; 85025; 87491; 87591; 96361; 96374; 96375; 96376; 99285; J1170; J1885; J2405; J7120; Q9967

== ENCOUNTER → 2024-10-05 07:06 | Outpatient (CLI) | payer BC, SELFPAY | LOC: SL 07:07 | PROVIDERS: PCP Family Medicine; Visit Provider Family Medicine | DX: R06.83 Snoring (principal); R06.81 Apnea, not elsewhere classified | CPT/HCPCS: G0399 ==

== ENCOUNTER 2025-03-19 08:23 | Outpatient (CLI) | payer BC, SELFPAY ==
--- OUTSIDE RECORDS SUMMARY | 2024-09-07 07:30 | XMS_ITS ---
Author Organization [facility] Address 1210 [facility] 36 [facility] [address] [phone] Care Team Providers Care Character Actor Name Role Phone Brooks Lopez Unavailable [phone] Allergies No Known Allergies REASON FOR VISIT [...] every day smoker 1 PPD Vital Signs Weight 199.4 lbs 09/07/2024 Blood pressure systolic 120 mm Hg 09/07/20 24 Blood pressure diastolic 72 mm Hg 024 Heart Rate 85 /min 09/07/2024 Height 69 in 09/07/2024 BMI 29.44 kg/m2 09/07/2024 Encounters Encounter Location Date Provider Diagnosis [facility] 12[address] [facility] 36 [facility] [address] [phone] 09/07/2024 Brooks Lopez Left-sided low back pain [...] Notes * KENDALL BOONEOB:1980 (44 yo M)Acc No.[id number]:09/07/2024 Progress Notes Patient: DANIEL ALICEA Provider: Leanna Lopez M.D. :1980 A ge:44 Y S ex:Male Date:09/07/2024 Address:[address] [place] [address], [facility] Subjective: * Chief Complaints: * 1 . [...] * Images: Billing Information: * Visit Code: 12294 Office Visit, Est Pt., Level 3. * Procedure Codes: * Electronic signature of Sabine Lopez MD on 03/19/2025 at 08:27 AM EDT Sign off status: Pending * Provider: Leanna Lopez M.D. Date: 1 11/08/2023 Generated for Misa martini/Horace/Ashwini on: 0 03/19/2025 08:27 AM EDT History and Physical Notes * [...]
--- OUTSIDE RECORDS SUMMARY | 2024-09-25 06:30 | XMS_ITS ---
Author Organization [facility] Address 1210 [facility] 36 [facility] [address] [phone] Care Team Providers Care Early Childhood Lead Teacher Name Role Phone Jessica Brooks Unavailable [phone] Allergies No Known Allergies REASON FOR VISIT [...] day smoker 1 PPD Vital Signs Weight 202 lbs 09/25/2024 Blood pressure systolic 120 mm Hg 09/25/19 25 Blood pressure diastolic 78 mm Hg 025 Heart Rate 90 /min 09/25/2024 Height 69 in 09/25/2024 BMI 29.83 kg/m2 09/25/2024 Encounters Encounter Location Date Provider Diagnosis [facility] 12[address] [facility] 36 [facility] [address] [phone] 09/25/2024 Brooks Lopez Left-sided low back pain [...] Notes * KENDALL BOONEOB:1980 (44 yo M)Acc No.[id number]:09/25/2024 Progress Notes Patient: DANIEL ALICEA Provider: Leanna Lopez M.D. :1980 A ge:44 Y S ex:Male Date:09/25/2024 Address:[address] [place] [address] Subjective: * Chief Complaints: * 1 . [...] * Images: Billing Information: * Visit Code: 59838 Office Visit, Est Pt., Level 3. * Procedure Codes: * Electronic signature of Sabine Lopez MD on 03/19/2025 at 08:27 AM EDT Sign off status: Pending * Provider: Leanna Lopez M.D. Date: 09/25/2024 Generated for Misa martini/Horace/Warditting on: 0 03/19/2025 08:27 AM EDT History [...]
--- OUTSIDE RECORDS SUMMARY | 2025-03-17 07:45 | XMS_ITS ---
Author Organization [facility] Address [address] [facility] 36 [facility] [address] [place] [phone] Care Team Providers Care Internal Control Manager Name Role Phone Brooks Lopez Unavailable [phone] Allergies No Known Allergies Results Component Value [...] Problem Status W/U Status Risk Notes Problem Solitary pulmonary nodule (890515750) Pulmonary nodule, right (R91.1) Active confirmed Problem Arthropathy of lumbar facet joint (749313382) Lumbar facet arthropathy (M47.816) Active confirmed Vital Signs Weight 201 lbs 03/17/2025 Blood pressure systolic 122 mm Hg 03/17/20 25 Blood pressure diastolic 78 mm Hg 025 Heart Rate 88 /min 03/17/2025 Height 69 in 03/17/2025 BMI 29.68 kg/m2 03/17/2025 Encounters Encounter Location Date Provider Diagnosis [facility] [address] [facility] [address] [place], [place] [id number] 03/17/2025 Brooks T[place] Right flank pain R10 .9 ; Pulmonary nodule, right R91.1 ; Degeneration of intervertebral disc of lumbar region, unspecified whether pain present M51.369 ; Lumbar facet arthropathy M47.816 ; Hyperlipidemia, unspecified hyperlipidemia type E78.5 ; Colon cancer screening Z12.11 ; History of colon polyps Z86.0100 ; Other chronic pain G89.29 and Low back pain, unspecified M54.50 Assessments Encounter Date Diagnosis (ICD Code) Assessment [...] back pain, unspecified (ICD-10 - M54.50) 03/17/2025 Other OK to extend FMLA for [...] test results, Reason: Progress Notes * ROSINA BOONEEDOB:1980 (44 yo M)Acc No.[id number]:03/17/2025 Progress Notes Patient: DANIEL ALICEA Provider: Leanna Lopez M.D. :1980 A ge:44 Y S ex:Male Date:03/17/2025 Address:[address] [place] [address] Subjective: * Chief Complaints: * 1 . [...] 3 times daily. Alcohol: no. * Medications: Victor M Prakashro Ellipta 62.5-25 MCG/ACT Aerosol Powder Breath Activated [...] L ow back pain, unspecified - M54.50 ? Plan: * Treatment: Value Reference Range C [...] right?Imaging: CT Scan : Chest with IV contrast3.?Degeneration of intervertebral disc of lumbar region, unspecified whether pain present?Imaging: MRI : Spine, Lumbosacral, without contrast4.?Lumbar facet arthropathy?Imaging: MRI : Spine, Lumbosacral, without contrast5.?Hyperlipidemia, unspecified hyperlipidemia type?LAB: H-TSH ?LAB: H-Lipid Panel [...] * Procedure Codes: 8 1002 Urinalysis, no micro * Follow Up: v ia phone to report test results * Images: Billing Information: * Visit Code: 45798 Office Visit, Est Pt., Level 4. * Procedure Codes: 42301 Urinalysis, no micro. * Electronic signature of Sabine Lopez MD on 03/19/2025 at 08:26 AM EDT Sign off status: Pending * Provider: Leanna Lopez M.D. Date: 03/17/2025 Generated for Misa martini/Horace/Ashwini on: 03/19/2025 08:26 AM EDT History and Physical Notes * [...]
--- OUTSIDE RECORDS SUMMARY | 2025-03-19 08:27 | XMS_ITS | Clinical Summary ---
Author Organization [facility] Address [address] [place] [address] Phone CareNubian Kinks Natural [email or web address] Care Team Providers Care Circus Supervisor Name Role Phone Brooks Lopez MD Primary Care Provider [phone] Allergies No known active allergies Medications Anoro Ellipta 62.5-25 MCG/ACT aerosol powder 3 Active omeprazole (PriLOSEC) [address] capsule 3 Active mupirocin (BACTROBAN) 2 % ointment APPLY OINTMENT TOPICALLY TWICE DAILY TO SURGICAL SITE BOTH MORNING AND NIGHT FOR 10 DAYS. COVER WITH GAUZE 3 Active Active Problems No known active problems Social History Tobacco Use Types Packs/Day Years Used Date Smoking Tobacco: Some Days Cigarettes Smokeless Tobacco: Never Tobacco Cessation:Ready to Q uit: Not Asked; Counseling Given: Not Answered Intimate Partner Violence Answer Date R ecorded Insults You Not on file 02/07/2021 Threatens You Not on file 02/07/2021 Screams at You Not on file 02/07/2021 Physically Hurt Not on file 02/07/2021 Intimate Partner Violence Score Not on file 02/07/2021 Depression Answer Date Recorded PHQ Total Score Not on file 11/02/2023 Stress Answer Date Recorded Stress in your Life Not on file 07/22/2024 Dealing with Stress 3 07/22/2024 Sex and Gender Information Value Date Recorded Sex Assigned at Not on file Legal Sex Male 2:13 PM CDT Gender Identity Not on file Sexual Orientation Not on file Last Filed Vital Signs Vital Sign Reading Time Taken Comments Blood Pressure 114/79 10/31/2022 12:37 PM EST Pulse 76 10/31/2022 12:37 PM EST Temperature 36.2 C (97.1 F) 10/31/2022 12:37 PM EST Respiratory Rate 18 10/31/2022 12:37 PM EST Oxygen Saturation 95% 10/31/2022 12:37 PM EST Inhaled Oxygen Concentration - - Weight 87.5 kg (193 lb) 02/07/2021 3:55 PM EDT Height 167 cm (5' 5.75 ) 02/07/2021 3:55 PM EDT Body Mass Index 31.39 02/07/2021 3:55 PM EDT Plan of Treatment Health Maintenance Due Date Last Done Comments Dental Cleaning/Exam 1980 HIV Screening 1980 Hepatitis C Screening 1980 Annual Preventive Exam 1999 Hep B Infection Screening - Triple Screen 1999 Hepatitis B Immunization (1 of 3 - 19+ 3-dose series) 2000 Pneumococcal: Ped (0 to 5 Yr s) and At-Risk Member (6 to 64 Yrs) (1 of 2 - PCV) 2000 Tetanus Diphtheria and Pertu ssis Immunization (1 - Tdap) 2000 Covid-19 Immunization (1 - 2 25 season) 2024 Influenza Immunization (#1) 2025 HIB Immunization Aged Out No longer e ligible based on patient's age to complete this topic HPV Immunization Aged Out No longer e ligible based on patient's age to complete this topic Hepatitis A Immunization Aged Out No longer eligible based on patient's age to complete this topic Polio Immunization Aged Out No longer eligible based on patient's age to complete this topic Varicella Immunization Aged Out No lo nger eligible based on patient's age to complete this topic Insurance OPT OUT NO COPAY NB Care Teams Circus Supervisor Relationship Specialty Start Date End Date Brooks Lopez MD [address] [facility] [address] [place] [address] 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
--- OUTSIDE RECORDS SUMMARY | 2025-03-19 08:27 | XMS_ITS | Patient Health Record ---
Author Organization [facility] Address [address] [facility] 36 [facility] [address] [place] [phone] Care Team Providers Care Metal Door Assembler Name Role Phone Brooks Lopez Unavailable [phone] Allergies No Known Allergies Results Component Value Reference Range Notes Urinalysis - Inhouse Reviewed date:03/17/2025 04:34:57 PM Interpretation: Performing Lab: Notes/Report: Color/Clarity Yellow/Clear Leuk Neg Nitrite Neg Urobili 3.2 Protein Neg pH 7.0 Blood Neg Sp. Gr. 1.020 Ketone Neg Bili Neg Gluc Neg sleep study Reviewed date:10/07/2024 09:46:30 AM Interpretation:mild JANEY, moderate O2 deSat, snoring Performing Lab: Notes/Report: mild JANEY, moderate O2 deSat, snoring Reason For Referral No Information Medications Medication SIG (Take, Route, Frequency, Duration) Notes Start Date End Date Status Loratadine 10 mg 1 tablet Orally Once a day; Duration: 30 days Active Omeprazole 40 MG 1 cap(s) orally once a day; Duration: 30 days Active Anoro Ellipta 62.5-25 MCG/ACT use 1 inhalation daily Activ e Meloxicam 15 MG 1 tablet Orally Once a day; Duration: 30 days 03/17/2025 Active Montelukast Sodium 10 mg TAKE 1 TABLET DAILY Active tiZANidine HCl 4 mg TAKE 1 TABLET DAILY AT BEDTIME NEEDED Active CPAP machine and supplies - as directed AutoPAP 03/01 as directed 10/14/2024 Active Immunizations Vaccine Route Administration Date Status Comme nts DT, 7 YEARS OR OLDER Unknown 05/26/1996 Administered Social History Tobacco Use: Social History Observation Description Date Details (start date - stop date) Current Smoker NA - NA CURRENT TOBACCO USE: Question Answer Notes Are you a: current every day smoker 1 PPD Problems Problem Type SNOMED Code ICD Code Onset Dates Problem Status W/U Status Risk Notes Problem Arthropathy of lumbar facet joint (301318112) Lumbar facet arthropathy (M47.816) Active confirmed Problem Obstructive sleep apnea (35372529) Obstructive sleep apnea (G47.33) Active confirmed Problem Chronic pain (93410347) Other chronic pain (G89.29) Active confirmed Problem Uncomplicated mild persistent asthma (296340150) Mild persistent asthma without complication (J45.30) Active confirmed Problem Hyperlipidaemia (67425718) Hyperlipidemia, unspecified hyperlipidemia type (E78.5) Active confirmed Problem Cigarette smoker (29818725) Cigarette smoker (F17.210) Active confirmed Problem Solitary pulmonary nodule (166880121) Pulmonary nodule, right (R91.1) Active confirmed Vital Signs Heart Rate 88 /min 03/17/2025 Blood pressure diastolic 78 mm Hg 03/17/2025 Height 69 in 03/17/2025 Blood pressure systolic 122 mm Hg 03/17/2025 Weight 201 lbs 03/17/2025 BMI 29.68 kg/m2 03/17/2025 Encounters Encounter Location Date [facility] [address] [phone] 07/30/2024 Brooks [place] Snoring R06.83 ; Witnessed apneic spells R06.81 ; Other chronic pain G89.29 and Low back pain, unspecified M54.50 [facility] [address] [facility] [address] [id number] 09/07/2024 Brooks [place] Left-sided low back pain without sciatica, unspecified chronicity M54.50 ; Muscle spasm of back M62.830 ; Chronic cough R05.3 and Mild persistent asthma without complication J45.30 [facility] [address] [facility] [address] [place] [phone] 09/25/2024 Brooks [place] Left-sided low back pain without sciatica, unspecified chronicity M54.50 and Muscle spasm of back M62.830 [facility] [address] [facility] [address] [place], [place] [id number] 03/17/2025 Brooks [place] Right flank pain R10 .9 ; Pulmonary nodule, right R91.1 ; Degeneration of intervertebral disc of lumbar region, unspecified whether pain present M51.369 ; Lumbar facet arthropathy M47.816 ; Hyperlipidemia, unspecified hyperlipidemia type E78.5 ; Colon cancer screening Z12.11 ; History of colon polyps Z86.0100 ; Other chronic pain G89.29 and Low back pain, unspecified M54.50 [facility] [address] [facility] [address] [facility] [address] [place], [place] [id number] 08/17/2024 Brooks [place] [facility] [address] [facility] 36 [facility] [address] [place], [place] [id number] 10/07/2024 Brooks [place] Assessments Encounter Date Diagnosis (ICD Code) Assessment Notes Treatment Notes Treatment Clinical Notes Section Notes 07/30/2024 Snoring (ICD-10 - R06.83) 07/30/2024 Witnessed apneic spells (ICD-10 - R06.81) 09/07/2024 Muscle spasm of back (ICD-10 - M62.830) 09/07/2024 Left-sided low back pain without sciatica, unspecified chronicity (ICD-10 - M54.50) TENS unit OTC recommended 09/25/2024 Muscle spasm of back (ICD-10 - M62.830) 09/25/2024 Left-sided low back pain without sciatica, unspecified chronicity (ICD-10 - M54.50) OK for intermittent FMLA to miss up to 2 days per month for the next 6 months 03/17/2025 Right flank pain (ICD-10 - R10.9) 03/17/2025 Pulmonary nodule, right (ICD-10 - R91.1) 03/17/2025 Degeneration of intervertebral disc of lumbar region, unspecified whether pain present (ICD-10 - M51.369) 09/07/2024 Chronic cough (ICD-10 - R05.3) 07/30/2024 Other chronic pain (ICD-10 - G89.29) 07/30/2024 Low back pain, unspecified (ICD-10 - M54.50) 09/07/2024 Mild persistent asthma without complication (ICD-10 - J45.30) 03/17/2025 Lumbar facet arthropathy (ICD-10 - M47.816) 03/17/2025 Hyperlipidemia, unspecified hyperlipidemia type (ICD-10 - E78.5) 03/17/2025 Colon cancer screening (ICD-10 - Z12.11) 03/17/2025 History of colon polyps (ICD-10 - Z86.0100) 03/17/2025 Other chronic pain (ICD-10 - G89.29) 03/17/2025 Low back pain, unspecified (ICD-10 - M54.50) 03/17/2025 Other OK to extend FMLA for another 6 months due to back pain. Plan Of Treatment Pending Test Test Name Order Date MRI : Spine, Lumbosacral, without contra st 03/17/2025 colonoscopy 03/17/2025 CT Scan : Chest with IV contrast 025 H-TSH 03/17/2025 H-Lipid Panel 03/17/2025 H-CMP 03/17/2025 Insurance Providers Payer Name Payer Address Payer Phone Subscriber Number Group Number Insured Name Patient Relationship to Insured Coverage Start Date Coverage End Date [facility] [address] [place] [address] [id number] DANIEL QUINONEZ Self - patient is the insured Medical (General) History Medical History History ICD Code Asthma Acid Reflux Colon polyps hemorrhoids plantar fasciitis hyperlipidemia kidney stones Surgical History Surgery Date(Month/Year) Lt Meniscus Scrotum Cyst Removal 10/2022 colonoscopy 2019
--- OUTSIDE RECORDS SUMMARY | 2025-03-19 08:27 | XMS_ITS | Data Portability ---
Author Organization PATRIA JONES Elaina & KAREN Berg ADMIN Address [address] [place] [address] Assessment Encounter Date Assessment Date Assessment LastModified by Organization Details LastModified Time 10/03/2022 10/03/2022 Small lesion on L scrotum; likely epidermal inclusion cyst that has ruptured in past leaving a remnant of cyst and surrounding scar. He would like to hqave this removed since it has flared and waxed and waned over time. Plan to excise under local/ MAC. Risks discussed. 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 No NSAIDS> [email or web address] Not available 10/12/2022 09:02:38 Plan of Treatment Reminders Order Date Submit Date Provider Last Modified By Organization Details Last Modified Time Details Appointments None record ed. Lab None record ed. Referral None record ed. Procedures None record ed. Surgeries None record ed. Imaging None record ed. Medication Orders None record ed. Patient TargetsNo targets recorded. Patient InstructionsNo instructions recorded. Reason for Referral None Reported. Results Created Date Observation Date Name Description Value Unit Range Abnormal Flag Note LastModifiedBy Organization Detail LastModifiedTime Result Notes None recorded. Problems Name Problem SNOMED Code Status Onset Date Resolution Date Notes Provider Name and Address Organization Details Recorded Time Asthma 778657281 Active 2022 Т[facility]на coles, [facility] & [place] 3 15:01:31 Arthritis 1011774 Active 2022 Татьяна coles [facility] KAREN [facility] & [place] 3 15:01:39 Environmental allergy 117517445 Active 2022 PATRIA Avendano KAREN [facility] & [place] 3 15:01:51 Sebaceous cyst of scrotum 49827828 Active 2022 Jerri coles, [facility] & [place] 3 12:48:54 Notes:bleeding testicle Problem Notes None recorded. Medical Equipment None Reported. Allergies No known drug allergies Medications Name Sig Start Date Stop Date Status Note LastModified by Organization Details LastModified Time amoxicillin 500 mg capsule TAKE 1 CAPSULE BY MOUTH THREE TIMES DAILY 10/03 completed Not Available Not Available Not Available ibuprofen 800 mg tablet TAKE 1 TABLET BY MOUTH THREE TIMES DAILY 10/03 completed Not Available Not Available Not Available hydrocodone 5 mg-acetamin ophen 325 mg tablet TAKE 1 TO 2 TABLETS BY MOUTH EVERY 4 TO 6 HOURS DO NOT EXCEED 6 TABLETS IN A 24 HOUR PERIOD 10/03 completed Not Available Not Available Not Available omeprazole 40 mg capsule,del ayed release Take 1 capsule every day by oral route. active Not Available Not Available No t Available tramadol 50 mg tablet Take 1 tablet every 8 hours by oral route for 5 days. active Not Available Not Available No t Available cephalexin 500 mg capsule TAKE 1 CAPSULE BY MOUTH EVERY 12 HOURS active Not Available Not Available No t Available Advair Diskus 250 mcg-50 mcg/dose powder for inhalation INHALE 1 PUFF BY MOUTH TWICE DAILY 10/03 completed Not Available Not Available Not Available mupirocin 2 % topical ointment APPLY OINTMENT TOPICALLY TWICE DAILY TO SURGICAL SITE BOTH MORNING AND NIGHT FOR 10 DAYS. COVER WITH GAUZE active Not Available Not Available No t Available methylpredn isolone 4 mg tablets in a dose pack TAKE BY MOUTH DIRECTED ON INSIDE OF PACKAGE 10/03 completed Not Available Not Available Not Available Gavilyte-C 240 gram-22.72 gram-6.72 gram-5.84 gram oral solution DRINK 240ML BY MOUTH EVERY 10 MINUTES UNTIL FECAL EFFLUENT IS CLEAR 10/03 completed Not Available Not Available Not Available Anoro Ellipta 62.5 mcg-25 mcg/actuati on powder for inhalation Inhale 1 puff every day by inhalatio n route. active Not Available Not Available No t Available Flowflex COVID-19 Antigen Home Test kit 10/03 completed Not Available Not Available Not Available Vitals Date Recorded Body height Body mass index (BMI) Body weight Body temperature Systolic And Diastolic Provider Name and Address Organization Details Last Updated DateTime 10/03/2022 175.26 cm 30.9 kg/m2 22733.5 2 g 97.7 [degF] 110/70 mm[Hg] Coreen ESPAÑA [facility] & [place] 3 14:49:55 Date Recorded Body height Body mass index (BMI) Body weight Systolic And Diastolic Provider Name and Address Organization Details Last Updated DateTime 10/23/2022 175.26 cm 31.1 kg/m2 41804.27 g 122/70 mm[Hg] Татьяна ESPAÑA [facility] & [place] 10/23/2022 10:41:31 Date Recorded Body height Body mass index (BMI) Body weight Body temperature Systolic And Diastolic Provider Name and Address Organization Details Last Updated DateTime 10/31/2022 175.26 cm 31.1 kg/m2 50591.2 7 g 98 [degF] 132/70 mm[Hg] Татьяна ESPAÑA [facility] & [place] 10:52:25 Social History Question Answer Notes LastModified by [employer] Details LastModified Time Tobacco Smoking Status Current Every Day Smoker Татьяна Vasquez [facility] & [place] 08/03/2022 09:57:52 How Much Tobacco Do You Smoke? 1 PPD Information not available 10/03/2022 Sex: Unknown Functional Status Question Answer Note LastModified by [employer] Details LastModified Time Do you use any illicit or recreational drugs? No Information not available 08/03/2022 What is your level of alcohol consumption? None Information not available 08/03/2022 Mental Status None recorded. Family History Nothing Reported Notes:Mother-Diabetic Medical History No medical history recorded. Gynecological HistoryNo gynecological history recorded. Obstetrics History GPAL:G 0 P 0 0 0 0 Past Encounters Encounter ID Performer Location Encounter Start Date Encounter Closed Date Diagnosis/Indication Diagnosis SNOMED-CT Code Diagnosis ICD10 Code Diagnosis Note [id number] Yousif Zhao MD [facility] [address] [facility],[address] [address] 10/03/2022 14:31:47 10/13/2022 21:17:16 Sebaceous cyst of scrotum 26954512 L72.3 [id number] Yany Xavier NP, S [facility] [address] [facility],[address] [place] [address] 10/23/2022 10:22:51 10/23/2022 11:09:42 Sebaceous cyst of scrotum 54347021 L72.3 Incision site CDI without any redness or drainage noted.Disc ussed wearing supportive underwearP t works 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 Pt will RTC next Saturday for f/u for possible release back to work. [id number] Yany Xavier NP, S [facility] [address] [facility] [place] [address] 10/31/2022 10:43:10 10/31/2022 11:11:47 Sebaceous cyst of scrotum 25566831 L72.3 Incision site CDI without any redness or drainage noted. Site is healing wllDiscuss ed wearing supportive underwearP t may return to work tomorrow. Health Concerns Section Related Observation LastModified by Organization Detai ls LastModified Time None Recorded Concern Status LastModified by Organization Details LastModified Time None Recorded Advance Directives Directive None Recorded Payers Insurance Date Sequence Insurance Name Policy Number Policy Jorgensen Covered Member ID Jorgensen Member ID Guarantor Name 10/29/2022 1 [place] [id number] A Valerio Lutz [id number] Valerio Lutz Notes Date Note Type Note Provider Name and Address Organization Details Recorded Time 10/03/2022 text/html Location: Left scrotumQuality: No pain. No discomfort. Lesion that has grown and has been bleeding.Severity: 07/03/22: 1-week prior had some bleeding (bled for 30 min then stopped)Started/Durati on: Over the last year it has slowly grown on left scrotumOnset/Timing: Acutely noticedContext: Intermittent bleedingModifying Factor/Therapy: Nothing. When experiencing dryness, has used coconut oil.Associated System: Skin lesion on left testicle ? cyst?Previous Evaluation: PCP: Dr. Lopez. No prior Urologist.Previous Labs:Previous Treatment: No treatments. No prior imaging. Yousif Zhao MD [address], [place], [address], [facility] & [place] 10/12/2022 09:07:01 10/23/2022 text/html Pt RTC for surge ry f/u. Pt underwent excision of scrotal cyst on 10/18/2022. Reports he has done well since the procedure. Denies any pain or swelling. Yany Xavier NP, S [address], [place], [address], [facility] & [place] 11/01/2022 11:06:03 10/31/2022 text/html Pt RTC for 2 wee k surgery f/u. Pt underwent excision of scrotal cyst on 10/18/2022. Pt has done well since the procedure without any complications. States stitches have started dissolving. Yany Xavier NP, S [address], [place], [address], [facility] & [place] 10/31/2022 10:58:04 OBGyn Episode No OBEpisode recorded.
[2025-03-19 09:22] LABS: Alanine Aminotransferase 47 U/L (12-78); Albumin Level 4.3 g/dl (3.5-5.0); Albumin/Globulin Ratio 2.0 (1.1-1.8); Alkaline Phosphatase 68 U/L (38-126); Anion Gap 11.0 mEq/L (5-15); Aspartate Amino Transferase 34 U/L (17-59); Bilirubin,Total 0.5 mg/dl (0.2-1.3); Blood Urea Nitrogen 8 mg/dl (9-20); Calcium 9.1 mg/dl (8.4-10.2); Carbon Dioxide 28 mmol/L (22.0-30.0); Chloride 102 mmol/L (98-107); Cholesterol 201 mg/dl (140-200); Creatinine,Serum 0.80 mg/dl (0.66-1.25); Estimated Glomerular Filt Rate 106 ml/min (>60); GFR (African American) 128 ML/MIN (>60); Globulin 2.1 g/dL (1.3-3.2); Glucose 97 mg/dl (74-100); HDL Cholesterol 37 mg/dl (40-60); Potassium 4.0 mmoL/L (3.5-5.1); Sodium 137 mmol/L (136-145); Total Protein,Serum 6.4 g/dl (6.3-8.2); Triglycerides 127 mg/dl (30-150)
[2025-03-19 09:53] LABS: Thyroid Stimulating Hormone 2.13 uIU/mL (0.465-4.68)
== END 2025-03-19 23:59 | disposition home or self-care (01) ==
LOC: LAB 08:25
PROVIDERS: PCP Family Medicine; Visit Provider Family Medicine
DX: E78.5 Hyperlipidemia, unspecified (principal)
CPT/HCPCS: 36415; 80053; 80061; 84443

== ENCOUNTER 2025-03-29 15:40 | Outpatient (CLI) | payer BC, SELFPAY ==
--- OUTSIDE RECORDS SUMMARY | 2024-09-07 07:30 | XMS_ITS ---
Author Organization [facility] Address [address] [facility] 36 [facility] [address] [id number] Care Team Providers Care Product Examiner Name Role Phone Brooks Lopez Unavailable [phone] Allergies No Known Allergies REASON FOR VISIT 4 weeks Medications Medication SIG (Take, Route, Frequency, Duration) Notes Start Date End Date Status Montelukast Sodium 10 MG 1 tablet Orally Once a day; Duration: 30 day(s) 09/07/2024 Active Omeprazole 40 MG 1 cap(s) orally once a day; Duration: 90 days Active tiZANidine HCl 4 MG 1 tablet at bedtime as needed Orally Once a day 09/07/2024 Active Anoro Ellipta 62.5-25 MCG/ACT use 1 inhalation daily Activ e Loratadine 10 MG 1 tablet Orally Once a day; Duration: 30 day(s) 09/07/2024 Active Social History Tobacco Use: Social History Observation Description Date Details (start date - stop date) Current Smoker NA - NA CURRENT TOBACCO USE: Question Answer Notes Are you a: current every day smoker 1 PPD Vital Signs Blood pressure systolic 120 mm Hg 09/07/20 24 Blood pressure diastolic 72 mm Hg 024 Heart Rate 85 /min 09/07/2024 Height 69 in 09/07/2024 Weight 199.4 lbs 09/07/2024 BMI 29.44 kg/m2 09/07/2024 Encounters Encounter Location Date Provider Diagnosis [facility] [address] [facility] 36 [facility] [address] [phone] 09/07/2024 Brooks Lopez Left-sided low back pain without sciatica, unspecified chronicity M54.50 ; Muscle spasm of back M62.830 ; Chronic cough R05.3 and Mild persistent asthma without complication J45.30 Assessments Encounter Date Diagnosis (ICD Code) Assessment Notes Treatment Notes Treatment Clinical Notes Section Notes 09/07/2024 Left-sided low back pain without sciatica, unspecified chronicity (ICD-10 - M54.50) TENS unit OTC recommended 09/07/2024 Muscle spasm of back (ICD-10 - M62.830) 09/07/2024 Chronic cough (ICD-10 - R05.3) 09/07/2024 Mild persistent asthma without complication (ICD-10 - J45.30) Plan Of Treatment Medication Medication Name Sig Start Date Stop Date Notes Montelukast Sodium 10 MG 1 tablet Orally Once a day; Duration: 30 day(s) 09/07/2024 tiZANidine HCl 4 MG 1 tablet at bedtime as needed Orally Once a day 09/07/2024 Loratadine 10 MG 1 tablet Orally Once a day; Duration: 30 day(s) 09/07/2024 Treatment Notes Assessment Notes Left-sided low back pain wit hout sciatica, unspecified chronicity TENS unit OTC recommended Next Appt Details Follow Up: prn, Reason: Progress Notes * KENDALL BOONEOB:1980 (44 yo M)Acc No.[id number]:09/07/2024 Progress Notes Patient: DANIEL ALICEA Provider: Leanna Lopez M.D. :1980 A ge:44 Y S ex:Male Date:09/07/2024 Address:[address] [place] [address], [id number] Subjective: * Chief Complaints: * 1 . 4 weeks. * HPI: Gurmeet ower back: 44 year old male presents with c/o Low Back Pain P t here for 4 week f/u on lower lt side back spasms. Pt states he is unable to take Duloxetine because it causes him to vomit. Pt states back spasms are worse than they have ever been . * ROS: D ERMATOLOGY: no R lola. n o H shy. G ASTROENTEROLOGY: no N ausea. n o V omiting. U ROLOGY: no D ifficulty urinating. n o B lood in urine. * Medical History: A sthma, Acid Reflux, Colon polyps, Hemorrhoids, Plantar fasciitis, Hyperlipidemia. * Surgical History: L t Meniscus , Scrotum Cyst Removal 10/2022, colonoscopy 2019. * Hospitalization/Major Diagno stic Procedure: D enies Past Hospitalization. * Family History: M other: diagnosed with Diabetes. M aternal Grand Mother: diagnosed with Heart Disease, Stroke. P aternal uncle: diagnosed with Diabetes. S iblings: diagnosed with Hypertension. 2 brother(s) . 3 son(s) , 1 daughter(s) . . * Social History: C URRENT TOBACCO USE: Yes A re you a: c urrent every day smoker 1 PPD. C affeine: yes, frequency: 3 times daily. Alcohol: no. * Medications: T aking Omeprazole 40 MG Capsule Delayed Release 1 cap(s) orally once a day , Taking Anoro Ellipta 62.5-25 MCG/ACT Aerosol Powder Breath Activated use 1 inhalation daily , Discontinued DULoxetine HCl 30 MG Capsule Delayed Release Particles 1 capsule Orally Once a day , Discontinued Meloxicam 15 MG Tablet 1 tablet Orally Once a day , Medication List reviewed and reconciled with the patient * Allergies: N .K.D.A. Objective: * Vitals: W t:199.4, Temp:97.8, BP:120/72, HR:85, Nurse:sherry, Ht: 69, BMI:29.44. * Examination: L ower back: Straight leg raising test: n egative bilaterally. G ait: n ormal. G eneral Examination: General Appearance: N AD. Assessment: * Assessment: 1. L eft-sided low back pain without sciatica, unspecified chronicity - M54.50 (Primary) ? 2 . M uscle spasm of back - M62.830 3 . C hronic cough - R05.3? 4. M ild persistent asthma without complication - J45.30 Plan: * Treatment: 2. M uscle spasm of back Start tiZANidine HCl Tablet, 4 MG, 1 tablet at bedtime as needed, Orally, Once a day, 30, Refills 1. 3. M ild persistent asthma without complication Start Montelukast Sodium Tablet, 10 MG, 1 tablet, Orally, Once a day, 30 day(s), 30 Tablet, Refills 0. 4. O thers Start Loratadine Tablet, 10 MG, 1 tablet, Orally, Once a day, 30 day(s), 30 Tablet, Refills 0. * Follow Up: p rn * Images: Billing Information: * Visit Code: 81932 Office Visit, Est Pt., Level 3. * Procedure Codes: * Electronic signature of Sabine Lopez MD on 03/29/2025 at 03:43 PM EDT Sign off status: Pending * Provider: Leanna Lopez M.D. Date: 1 11/08/2023 Generated for Misa martini/Horace/Warditting on: 0 03/29/2025 03:43 PM EDT History and Physical Notes * HPI (History of Present Illness) Category Sub-Category Detail Notes Category Not es Lower back Low Back Pain Pt here for 4 we ek f/u on lower lt side back spasms. Pt states he is unable to take Duloxetine because it causes him to vomit. Pt states back spasms are worse than they have ever been Examination Category Sub-Category Detail Notes Category Not es General Examination General Appearance: NAD Lower back Straight leg raising test: negative bilaterally Gait: normal
--- OUTSIDE RECORDS SUMMARY | 2024-09-25 06:30 | XMS_ITS ---
Author Organization [facility] Address 1210 [facility] 36 [facility] [address] [phone] Care Team Providers Care Tire Fabric Impregnating Range Tender Name Role Phone Jessica Brooks Unavailable [phone] Allergies No Known Allergies REASON FOR VISIT Back pain Medications Medication SIG (Take, Route, Frequency, Duration) Notes Start Date End Date Status tiZANidine HCl 4 MG 1 tablet at bedtime as needed Orally Once a day 09/07/2024 Active Montelukast Sodium 10 MG 1 tablet Orally Once a day; Duration: 30 day(s) 09/07/2024 Active Loratadine 10 MG 1 tablet Orally Once a day; Duration: 30 day(s) 09/07/2024 Active Anoro Ellipta 62.5-25 MCG/ACT use 1 inhalation daily Activ e Omeprazole 40 MG 1 cap(s) orally once a day; Duration: 90 days Active Social History Tobacco Use: Social History Observation Description Date Details (start date - stop date) Current Smoker NA - NA CURRENT TOBACCO USE: Question Answer Notes Are you a: current every day smoker 1 PPD Vital Signs Blood pressure systolic 120 mm Hg 09/25/19 25 Blood pressure diastolic 78 mm Hg 025 Heart Rate 90 /min 09/25/2024 Height 69 in 09/25/2024 Weight 202 lbs 09/25/2024 BMI 29.83 kg/m2 09/25/2024 Encounters Encounter Location Date Provider Diagnosis [facility] 1210 [facility] 36 [facility] [address] [phone] 09/25/2024 Brooks Lopez Left-sided low back pain without sciatica, unspecified chronicity M54.50 and Muscle spasm of back M62.830 Assessments Encounter Date Diagnosis (ICD Code) Assessment Notes Treatment Notes Treatment Clinical Notes Section Notes 09/25/2024 Left-sided low back pain without sciatica, unspecified chronicity (ICD-10 - M54.50) OK for intermittent FMLA to miss up to 2 days per month for the next 6 months 09/25/2024 Muscle spasm of back (ICD-10 - M62.830) Plan Of Treatment Treatment Notes Assessment Notes Left-sided low back pain wit hout sciatica, unspecified chronicity OK for intermittent FMLA to miss up to 2 days per month for the next 6 months Next Appt Details Follow Up: via phone to repo rt progress, Reason: Progress Notes * KENDALL BOONEOB:1980 (44 yo M)Acc No.[id number]:09/25/2024 Progress Notes Patient: DANIEL ALICEA Provider: Leanna Lopez M.D. :1980 A ge:44 Y S ex:Male Date:09/25/2024 Address:[address] [place] [address] Subjective: * Chief Complaints: * 1 . Back pain. * HPI: H PI: 44 year old male presents with c/o Patient is here today for?Pt here to discuss FMLA paperwork. Pt states he needs FMLA for muscle spasms that he continues to have . * ROS: D ERMATOLOGY: no R [...] Breath Activated use 1 inhalation daily , Taking Loratadine 10 MG Tablet 1 tablet Orally Once a day , Taking Montelukast Sodium 10 MG Tablet 1 tablet Orally Once a day , Taking tiZANidine HCl 4 MG Tablet 1 tablet at bedtime as needed Orally Once a day , Medication List reviewed and reconciled with the patient * Allergies: N .K.D.A. Objective: * Vitals: W t:202, Temp:98.0, BP:120/78, HR:90, Nurse:sherry, Ht: 69, BMI:29.83. * Examination: G eneral Examination: General Appearance: N AD. Assessment: * Assessment: 1. L eft-sided low back pain without sciatica, unspecified chronicity - M54.50 (Primary) ? 2 . M uscle spasm of back - M62.830 Plan: * Treatment: * Follow Up: v ia phone to report progress * Images: Billing Information: * Visit Code: 16761 Office Visit, Est Pt., Level 3. * Procedure Codes: * Electronic signature of Sabine Lopez MD on 03/29/2025 at 03:44 PM EDT Sign off status: Pending * Provider: Leanna Lopez M.D. Date: 09/25/2024 Generated for Misa martini/Horace/Warditting on: 0 03/29/2025 03:44 PM EDT History and Physical Notes * HPI (History of Present Illness) Category Sub-Category Detail Notes Category Not es HPI Patient is here today for Pt her e to discuss FMLA paperwork. Pt states he needs FMLA for muscle spasms that he continues to have Examination Category Sub-Category Detail Notes Category Not es General Examination General Appearance: NAD
--- OUTSIDE RECORDS SUMMARY | 2025-03-17 07:45 | XMS_ITS ---
Author Organization [facility] Address [address] [facility] [address] [facility] [address] [place], [place] [id number] Care Team Providers Care Tire Service Supervisor Name Role Phone Brooks Lopez Unavailable [phone] Allergies No Known Allergies Results Component Value Reference Range Notes Urinalysis - Inhouse Reviewed date:03/17/2025 04:34:57 PM Interpretation: Performing Lab: Notes/Report: Color/Clarity Yellow/Clear Leuk Neg Nitrite Neg Urobili 3.2 Protein Neg pH 7.0 Blood Neg Sp. Gr. 1.020 Ketone Neg Bili Neg Gluc Neg REASON FOR VISIT back & side pain [...] confirmed Problem Arthropathy of lumbar facet joint (902739227) Lumbar facet arthropathy (M47.816) Active confirmed Vital Signs Weight 201 lbs 03/17/2025 Blood pressure systolic 122 mm Hg 03/17/20 25 Blood pressure diastolic 78 mm Hg 025 Heart Rate 88 /min 03/17/2025 Height 69 in 03/17/2025 BMI 29.68 kg/m2 03/17/2025 Encounters Encounter Location Date Provider Diagnosis [facility] [address] [place], [place] [id number] 03/17/2025 Brooks [place] Right flank pain R10 .9 ; Pulmonary [...] pain. Pending Test Test Name Order Date MRI : Spine, Lumbosacral, without contra st 03/17/2025 colonoscopy 03/17/2025 CT Scan : Chest with IV contrast 025 H-TSH 03/17/2025 H-Lipid Panel 03/17/2025 H-CMP 03/17/2025 Next Appt Details Follow Up: via phone to repo rt test results, Reason: Progress Notes * ROSINA BOONESUSANOB:1980 (44 yo M)Acc No.[id number]:03/17/2025 Progress Notes Patient: DANIEL ALICEA Provider: Leanna Lopez M.D. :1980 A ge:44 Y S ex:Male Date:03/17/2025 Address:[address] [place] [address] Subjective: * Chief Complaints: * 1 . [...] - M54.50 & #160; 1 0. B MN 29.0-29.9,adult - Z68.29 Plan: * Treatment: Value Reference Range C olor/Clarity Yellow/Clear * L euk Neg * N itrite Neg * U robili 3.2 * P rotein Neg * p H 7.0 * B lood Neg * S p. Gr. 1.020 * K etone Neg * B jennifer Neg * G jessica Neg * Bree aHrris 03/17/2025 12:02:5 0 PM EDT > Provider reviewed results while patient in office. 2.?Pulmonary nodule, right?Imaging: CT Scan : Chest with IV contrast* [place] 03/23/2025 01:12 :43 PM EDT > auth#[id number]; valid 03/23/2025- 04/21/2025; CPT code 72118; faxed to [facility] Scheduling 3.?Degeneration of intervertebral disc of lumbar region, unspecified whether pain present?Imaging: MRI : Spine, Lumbosacral, without contrast* [place] 03/23/2025 01:07 :25 PM EDT > auth#[id number]; valid 03/23/2025- 04/21/2025; CPT code 44997; faxed to [facility] Scheduling 4.?Lumbar facet arthropathy?Imaging: MRI : Spine, Lumbosacral, without contrast* [place] 03/23/2025 01:07 :25 PM EDT > auth#[id number]; valid 03/23/2025- 04/21/2025; CPT code 56902; faxed to [facility] Scheduling 5.?Hyperlipidemia, unspecified hyperlipidemia type?LAB: H-TSH ?LAB: H-Lipid Panel ?LAB: H-CMP6.?Colon cancer screening?Imaging: colonoscopy* Dr. Block on a [...] * Images: Billing Information: * Visit Code: 18823 Office Visit, Est Pt., Level 4. * Procedure Codes: 52068 Urinalysis, no micro. G8420 BMI<30 AND >=22 CALC & DOCU. G8783 BP SCR PRFRM RCMDD DEFIND SCR INTVL. G8752 MOST RECENT SYSTOLIC BP < 140MM HG. G8754 MOST RECENT DIASTOLIC BP < 90MM HG. * Electronic signature of Sabine Lopez MD on 03/29/2025 at 03:43 PM EDT Sign off status: Pending * Provider: Leanna Lopez M.D. Date: 03/17/2025 Generated for Misa martini/Horace/Michellesmitting on: 03/29/2025 03:43 PM EDT History and Physical [...]
--- NOTE | 2025-03-29 15:43 | MR_ITS ---
FINAL REPORT TECHNIQUE: Multiplanar MR without contrast CLINICAL HISTORY: DEGENERATION OF LUMBAR REGION, lbp FINDINGS: Sagittal images show normal vertebral height. There is mild retrolisthesis of L5 on S1. Marrow signal pattern is unremarkable. L1-2: Unremarkable L2-3: Unremarkable L3-4: Mild annular disc bulge with mild neuroforaminal narrowing. L4-5: Moderate annular disc bulge. Mild facet arthropathy. Moderate central canal stenosis and mild neuroforaminal narrowing. L5-S1: Moderate annular disc bulge and facet arthropathy. Mild central canal stenosis and mild neuroforaminal narrowing. IMPRESSION: Degenerative disease, most pronounced in the lower lumbar spine. Reviewed, Interpreted and Dictated by Tracy Duff MD Transcribed by Rula Hinton Authenticated and [facility]
--- OUTSIDE RECORDS SUMMARY | 2025-03-29 15:44 | XMS_ITS | Patient Health Record ---
Author Organization [facility] Address [address] [facility] [address] [id number] Care Team Providers Care Programs Assistant Name Role Phone Brooks Lopez Unavailable [phone] Allergies No Known Allergies Results Component Value [...] Notes Problem Arthropathy of lumbar facet joint (224343168) Lumbar facet arthropathy (M47.816) Active confirmed Problem Obstructive sleep apnea (49128117) Obstructive sleep apnea (G47.33) Active confirmed Problem Chronic pain (71854159) Other chronic pain (G89.29) Active confirmed Problem Uncomplicated mild persistent asthma (608958310) Mild persistent asthma without complication (J45.30) Active confirmed Problem Hyperlipidaemia (18276337) Hyperlipidemia, unspecified hyperlipidemia type (E78.5) Active confirmed Problem Cigarette smoker (94159842) Cigarette smoker (F17.210) Active confirmed Problem Solitary pulmonary nodule (671131521) Pulmonary nodule, right (R91.1) Active confirmed Vital Signs Heart Rate 88 /min 03/17/2025 Blood pressure diastolic 78 mm Hg 03/17/2025 Height 69 in 03/17/2025 Blood pressure systolic 122 mm Hg 03/17/2025 Weight 201 lbs 03/17/2025 BMI 29.68 kg/m2 03/17/2025 Encounters Encounter Location Date Provider Diagnosis [facility] [address] [id number] 07/30/2024 Brooks Caldwell Snoring R06.83 ; Witnessed apneic spells R06.81 ; Other chronic pain G89.29 and Low back pain, unspecified M54.50 [facility] [address] [id number] 09/07/2024 Brooks Caldwell Left-sided low back pain without sciatica, unspecified chronicity M54.50 ; Muscle spasm of back M62.830 ; Chronic cough R05.3 and Mild persistent asthma without complication J45.30 [facility] [address] [place] [id number] 09/25/2024 Brooks Caldwell Left-sided low back pain without sciatica, unspecified chronicity M54.50 and Muscle spasm of back M62.830 [facility] [address] [place] [id number] 03/17/2025 Brooks Caldwell Right flank pain R10 .9 ; Pulmonary nodule, right R91.1 ; Degeneration of intervertebral disc of lumbar region, unspecified whether pain present M51.369 ; Lumbar facet arthropathy M47.816 ; Hyperlipidemia, unspecified hyperlipidemia type E78.5 ; Colon cancer screening Z12.11 ; History of colon polyps Z86.0100 ; Other chronic pain G89.29 ; Low back pain, unspecified M54.50 and BMI 29.0-29.9,adult Z68.29 [facility] [address] [facility] [address] [place] [id number] 08/17/2024 Brooks Caldwell Rashid [address] [place], [place] [id number] 10/07/2024 Brooks Caldwell Assessments Encounter Date Diagnosis (ICD Code) Assessment [...] Insured Coverage Start Date Coverage End Date [facility] [address] [place] [address] [id number] DANIEL QUINONEZ Self - patient is the insured Medical (General) History Medical History History ICD Code Asthma Acid Reflux Colon polyps hemorrhoids plantar fasciitis hyperlipidemia kidney stones Surgical History Surgery Date(Month/Year) Lt Meniscus Scrotum Cyst Removal 10/2022 colonoscopy 2019
--- OUTSIDE RECORDS SUMMARY | 2025-03-29 15:44 | XMS_ITS | Data Portability ---
Author Organization PATRIA JONES Elaina & KAREN Berg ADMIN Address [address] [place] [address] Assessment Encounter Date Assessment Date Assessment LastModified [...] local/ MAC. Risks discussed. NPO after MN. 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> [email or web address] Not available 10/12/2022 09:02:38 Plan of Treatment [...] and Address Organization Details Recorded Time Asthma 025510997 Active 2022 [facility] coles, [facility] & [place] 3 15:01:31 Arthritis 1649752 Active 2022 Татьяна coles [facility] KAREN [facility] & [place] 3 15:01:39 Environmental allergy 043781099 Active 2022 Татьяна coles [facility] KAREN [facility] & [place] 3 15:01:51 Sebaceous cyst of scrotum 18056421 Active 2022 [facility] coles, [facility] [place] 3 12:48:54 Notes:bleeding testicle Problem Notes None [...] Updated DateTime 10/03/2022 175.26 cm 30.9 kg/m2 76167.5 2 g 97.7 [degF] 110/70 mm[Hg] Coreen ESPAÑA [facility] & [place] 3 14:49:55 Date Recorded Body height Body mass index (BMI) Body weight Systolic And Diastolic Provider Name and Address Organization Details Last Updated DateTime 10/23/2022 175.26 cm 31.1 kg/m2 75326.27 g 122/70 mm[Hg] Татьяна ESPAÑA [facility] & [place] 10/23/2022 10:41:31 Date Recorded Body height Body mass index (BMI) Body weight Body temperature Systolic And Diastolic Provider Name and Address Organization Details Last Updated DateTime 10/31/2022 175.26 cm 31.1 kg/m2 35802.2 7 g 98 [degF] 132/70 mm[Hg] Татьяна ESPAÑA [facility] & [place] 10:52:25 Social History Question Answer Notes LastModified by [email or web address] Details LastModified Time Tobacco Smoking Status Current Every Day Smoker Татьяна Vasquez [facility] & [place] 08/03/2022 09:57:52 How Much Tobacco Do You Smoke? 1 PPD Information not available 10/03/2022 Sex: Unknown Functional Status Question Answer Note LastModified by [email or web address] Details LastModified Time Do you use any [...] SNOMED-CT Code Diagnosis ICD10 Code Diagnosis Note [id number] Yousif Zhao MD [facility] [address] [facility],[address] [address] 10/03/2022 14:31:47 10/13/2022 21:17:16 Sebaceous cyst of scrotum 11319345 L72.3 [id number] Yany Xavier NP, S [facility] [address] [facility],[address] [place] [address] 10/23/2022 10:22:51 10/23/2022 11:09:42 Sebaceous cyst of scrotum 08306262 L72.3 Incision site CDI without any redness or drainage noted.Disc ussed wearing supportive underwearP t works 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 Pt will RTC next Saturday for f/u for possible release back to work. [id number] Yany Xavier NP, S [facility] [address] [facility] [place] [address] 10/31/2022 10:43:10 10/31/2022 11:11:47 Sebaceous cyst of scrotum 42530400 L72.3 Incision site CDI without any redness [...] ID Guarantor Name 10/29/2022 1 [place] [id number] A Valerio Lutz [id number] Valerio Lutz Notes Date Note Type [...] No prior imaging. Yousif Zhao MD [address], [place], [address], [facility] & [place] 10/12/2022 09:07:01 10/23/2022 text/html Pt RTC for surge ry f/u. Pt underwent excision of scrotal cyst on 10/18/2022. Reports he has done well since the procedure. Denies any pain or swelling. Yany Xavier NP, S [address], [place], [address], [facility] & [place] 11/01/2022 11:06:03 10/31/2022 text/html Pt RTC for 2 wee k surgery f/u. Pt underwent excision of scrotal cyst on 10/18/2022. Pt has done well since the procedure without any complications. States stitches have started dissolving. Yany Xavier NP, S [address], [place], [address], [facility] & [place] 10/31/2022 10:58:04 OBGyn Episode No OBEpisode recorded.
--- OUTSIDE RECORDS SUMMARY | 2025-03-29 15:44 | XMS_ITS | Clinical Summary ---
Author Organization [facility] Address [address] [place] [address] Phone [email or web address] Care Team Providers Care Data Analytics Developer Name Role Phone Brooks Lopez MD Primary Care Provider Allergies No known active allergies Medications Anoro [...] OPT OUT NO COPAY NB Care Teams Data Analytics Developer Relationship Specialty Start Date End Date Brooks Lopez MD [address] [place] [facility] [address] [place] [address] PCP - General Sourcing Analyst 10/31/22
== END 2025-03-29 23:59 | disposition home or self-care (01) ==
LOC: RAD 15:41
PROVIDERS: PCP Family Medicine; Visit Provider Family Medicine
DX: M51.369 Other intervertebral disc degeneration, lumbar region without mention of lumbar back pain or lower extremity pain (principal)
CPT/HCPCS: 72148

== ENCOUNTER 2025-04-05 10:42 | Outpatient (CLI) | payer BC, SELFPAY ==
--- OUTSIDE RECORDS SUMMARY | 2024-09-07 07:30 | XMS_ITS ---
Author Organization [facility] Address [address] [facility] 36 [facility] [address] [phone] Care Team Providers Care Neurologist Name Role Phone Brooks Lopez Unavailable [phone] Allergies No Known Allergies REASON FOR VISIT [...] Encounter Location Date Provider Diagnosis [facility] [address] [facility] 36 [facility] [address] [phone] 09/07/2024 Brooks Lopez Left-sided low back pain [...] Notes * KENDALL BOONEOB:1980 (44 yo M)Acc No.[id number]:09/07/2024 Progress Notes Patient: DANIEL ALICEA Provider: Leanna Lopez M.D. :1980 A ge:44 Y S ex:Male Date:09/07/2024 Address:[address] [place] [address], [id number] Subjective: * Chief Complaints: * 1 . [...] * Images: Billing Information: * Visit Code: 39721 Office Visit, Est Pt., Level 3. * Procedure Codes: * Electronic signature of Sabine Lopez MD on 04/05/2025 at 10:45 AM EDT Sign off status: Pending * Provider: Leanna Lopez M.D. Date: 1 11/08/2023 Generated for Misa martini/Horace/Warditting on: 0 04/05/2025 10:45 AM EDT History and Physical Notes * HPI [...]
--- OUTSIDE RECORDS SUMMARY | 2024-09-25 06:30 | XMS_ITS ---
Author Organization [facility] Address 1210 [facility] 36 [facility] [address] [phone] Care Team Providers Care Tourist Information Officer Name Role Phone Jessica Brooks Unavailable [phone] Allergies No Known Allergies REASON FOR VISIT [...] Encounter Location Date Provider Diagnosis [facility] 12[address] [facility] 36 [facility] [address] [address] [phone] 09/25/2024 Brooks Lopez Left-sided low back pain [...] Notes * KENDALL BOONEOB:1980 (44 yo M)Acc No.[id number]:09/25/2024 Progress Notes Patient: DANIEL ALICEA Provider: eLanna Lopez M.D. :1980 A ge:44 Y S ex:Male Date:09/25/2024 Address:[address] [place] [address] Subjective: * Chief Complaints: * 1 . [...] * Images: Billing Information: * Visit Code: 78390 Office Visit, Est Pt., Level 3. * Procedure Codes: * Electronic signature of Sabine Lopez MD on 04/05/2025 at 10:44 AM EDT Sign off status: Pending * Provider: Leanna Lopez M.D. Date: 09/25/2024 Generated for Misa martini/Horace/Warditting on: 0 04/05/2025 10:44 AM EDT History and Physical Notes * [...]
--- OUTSIDE RECORDS SUMMARY | 2025-03-17 07:45 | XMS_ITS ---
Author Organization [facility] Address [address] [facility] 36 [facility] [address] [place] [id number] Care Team Providers Care Coding Compliance Specialist Name Role Phone Brooks Lopez Unavailable [phone] Allergies No Known Allergies Results Component Value Reference Range Notes Urinalysis - Inhouse Reviewed date:03/17/2025 04:34:57 PM Interpretation: Performing Lab: Notes/Report: Color/Clarity Yellow/Clear Leuk Neg Nitrite Neg Urobili 3.2 Protein Neg pH 7.0 Blood Neg Sp. Gr. 1.020 Ketone Neg Bili Neg Gluc Neg MRI : Spine, Lumbosacral, wi thout contrast (Not yet reviewed by provider) Interpretation:degenerative disease, most pronounced lower l-spine Performing Lab: Notes/Report: degenerative disease, most pronounced lower l-spine REASON FOR VISIT back & side pain [...] confirmed Problem Arthropathy of lumbar facet joint (089040681) Lumbar facet arthropathy (M47.816) Active confirmed Vital Signs Blood pressure systolic 122 mm Hg 03/17/20 25 Blood pressure diastolic 78 mm Hg 025 Heart Rate 88 /min 03/17/2025 Height 69 in 03/17/2025 Weight 201 lbs 03/17/2025 BMI 29.68 kg/m2 03/17/2025 Encounters Encounter Location Date Provider Diagnosis [facility] [address] [facility] [address] [place] [phone] 03/17/2025 Brooks [place] Right flank pain R10 .9 ; Pulmonary [...] Notes * ROSINA BOONESUSANOB:1980 (44 yo M)Acc No.[id number]:03/17/2025 Progress Notes Patient: DANIEL ALICEA Provider: Leanna Lopez M.D. :1980 A ge:44 Y S ex:Male Date:03/17/2025 Address:[address] [place], [place] [address] Subjective: * Chief Complaints: * 1 . [...] - M54.50 & #160; 1 0. B AL 29.0-29.9,adult - Z68.29 Plan: * Treatment: Value [...] [place] 03/23/2025 01:12 :43 PM EDT > auth#[id number]; valid 03/23/2025- 04/21/2025; CPT code 34560; faxed to [facility] Scheduling 3.?Degeneration of intervertebral disc of lumbar region, unspecified whether pain present?Imaging: MRI : Spine, Lumbosacral, without contrast (Performed Date - 03/29/2025)?degenerative disease, most pronounced lower l-spine* [place] 03/23/2025 01:07 :25 PM EDT > auth#[id number]; valid 03/23/2025- 04/21/2025; CPT code 33562; faxed to [facility] Scheduling 4.?Lumbar facet arthropathy?Imaging: MRI : Spine, Lumbosacral, without contrast (Performed Date - 03/29/2025)?degenerative disease, most pronounced lower l-spine* [place] 03/23/2025 01:07 :25 PM EDT > auth#[id number]; valid 03/23/2025- 04/21/2025; CPT code 59094; faxed to [facility] Scheduling 5.?Hyperlipidemia, unspecified hyperlipidemia type?LAB: H-TSH ?LAB: [...] * Images: Billing Information: * Visit Code: 27473 Office Visit, Est Pt., Level 4. * Procedure Codes: 15609 Urinalysis, no micro. G8420 BMI<30 AND >=22 CALC & DOCU. G8783 BP SCR PRFRM RCMDD DEFIND SCR INTVL. G8752 MOST RECENT SYSTOLIC BP < 140MM HG. G8754 MOST RECENT DIASTOLIC BP < 90MM HG. * Electronic signature of Sabine Lopez MD on 04/05/2025 at 10:44 AM EDT Sign off status: Pending * Provider: Leanna Lopez M.D. Date: 03/17/2025 Generated for Misa martini/Horace/eTransmitting on: 04/05/2025 10:44 AM EDT History and Physical [...]
--- OUTSIDE RECORDS SUMMARY | 2025-04-05 10:45 | XMS_ITS | Patient Health Record ---
Author Organization [facility] Address [address] [facility] 36 [facility] [address] [place] [phone] Care Team Providers Care Subway Repair Supervisor Name Role Phone Brooks Lopez Unavailable [phone] Allergies No Known Allergies Results Component Value [...] Notes/Report: degenerative disease, most pronounced lower l-spine sleep study Reviewed date:10/07/2024 09:46:30 AM Interpretation:mild [...] machine and supplies - as directed AutoPAP 6/16 as directed 10/14/2024 Active Immunizations Vaccine Route [...] Notes Problem Arthropathy of lumbar facet joint (154827583) Lumbar facet arthropathy (M47.816) Active confirmed Problem Obstructive sleep apnea (87715371) Obstructive sleep apnea (G47.33) Active confirmed Problem Chronic pain (00972842) Other chronic pain (G89.29) Active confirmed Problem Uncomplicated mild persistent asthma (636564884) Mild persistent asthma without complication (J45.30) Active confirmed Problem Hyperlipidaemia (49325094) Hyperlipidemia, unspecified hyperlipidemia type (E78.5) Active confirmed Problem Cigarette smoker (12965041) Cigarette smoker (F17.210) Active confirmed Problem Solitary pulmonary nodule (990689872) Pulmonary nodule, right (R91.1) Active confirmed Vital Signs Heart Rate 88 /min 03/17/2025 Blood pressure diastolic 78 mm Hg 03/17/2025 Height 69 in 03/17/2025 Blood pressure systolic 122 mm Hg 03/17/2025 Weight 201 lbs 03/17/2025 BMI 29.68 kg/m2 03/17/2025 Encounters Encounter Location Date Provider Diagnosis [facility] [address] [place] [address] [facility] [address] [place] [id number] 07/30/2024 Brooks Telford Snoring R06.83 ; Witnessed apneic spells R06.81 ; Other chronic pain G89.29 and Low back pain, unspecified M54.50 [facility] [address] [facility] [address] [place], [place] [id number] 09/07/2024 Brooks Telford Left-sided low back pain without sciatica, unspecified chronicity M54.50 ; Muscle spasm of back M62.830 ; Chronic cough R05.3 and Mild persistent asthma without complication J45.30 [facility] [address] [facility] [address] [place], [place] [id number] 09/25/2024 Brooks Telford Left-sided low back pain without sciatica, unspecified chronicity M54.50 and Muscle spasm of back M62.830 [facility] [address] [place] [id number] 03/17/2025 Brooks Telford Right flank pain R10 .9 ; Pulmonary nodule, right R91.1 ; Degeneration of intervertebral disc of lumbar region, unspecified whether pain present M51.369 ; Lumbar facet arthropathy M47.816 ; Hyperlipidemia, unspecified hyperlipidemia type E78.5 ; Colon cancer screening Z12.11 ; History of colon polyps Z86.0100 ; Other chronic pain G89.29 ; Low back pain, unspecified M54.50 and BMI 29.0-29.9,adult Z68.29 [facility] [address] [place] [id number] 08/17/2024 Brooks Telford [facility] [place] [id number] 10/07/2024 Brooks Telford Assessments Encounter Date Diagnosis (ICD Code) Assessment Notes Treatment Notes Treatment Clinical Notes Section Notes 07/30/2024 Snoring (ICD-10 - R06.83) 07/30/2024 Witnessed apneic spells (ICD-10 - R06.81) 09/07/2024 Muscle spasm of back (ICD-10 - M62.830) 09/07/2024 Left-sided low back pain without sciatica, unspecified chronicity (ICD-10 - M54.50) TENS unit OTC recommended 03/17/2025 Right flank pain (ICD-10 - R10.9) 03/17/2025 Pulmonary nodule, right (ICD-10 - R91.1) 09/25/2024 Muscle spasm of back (ICD-10 - M62.830) 09/25/2024 Left-sided low back pain without sciatica, unspecified chronicity (ICD-10 - M54.50) [place] for intermittent FMLA to miss up to 2 days per month for the next 6 months 03/17/2025 Degeneration of intervertebral disc of lumbar [...] Insured Coverage Start Date Coverage End Date [employer]KE [employer]KESLEE [employer] [facility] [address] [place] [address] [id number] 1EDANIEL HARRIS Self - patient is the insured Medical (General) History Medical History History ICD Code Asthma Acid Reflux Colon polyps hemorrhoids plantar fasciitis hyperlipidemia kidney stones Surgical History Surgery Date(Month/Year) Lt Meniscus Scrotum Cyst Removal 10/2022 colonoscopy 2019
--- OUTSIDE RECORDS SUMMARY | 2025-04-05 10:45 | XMS_ITS | Clinical Summary ---
[facility] Address [address] [place] [address] Care Team Providers Care Returned Goods Inspector Name Role Phone Presley Tapia MD Primary Care Provider [phone] Allergies Active Allergy Reactions Criticality Noted Date Comments No Known Drug Allergy 08/28/2016 Medications No known medications Active Problems Problem Noted Date Diagnosed Date Precordial pain 08/28/2016 GERD (gastroesophageal reflux disease) 6 Family History Relation Name Status Comments Father unknown Alive Mother not known Alive Social History Tobacco Use Types Packs/Day Years Used Date Smoking Tobacco: Every Day Cigarettes Alcohol Use Standard Drinks/Week Comments Yes 0 (1 standard drink = 0.6 oz pur e alcohol) occasional Abuse Screen Answer Date Recorded Unsafe at Home or Work/School Not on file Feels Threatened by Someone? Not on file 06/2023 Does Anyone Keep You from Co ntacting Others or Doint Things Outside the Home? Not on file 06/25/2023 Physical Sign of Abuse Present Not on file 1 Housing Stability Answer Date Recorded Current Living Arrangements Not on file 06/16 Potentially Unsafe Housing Conditions Not on nicki e 06/25/2023 Family and Community Support Answer Irvin e Recorded Help with Day-to-Day Activities Not on file 06/25/2023 Lonely or Isolated Not on file 06/25/2023 Employment Answer Date Recorded Do you want help finding or keeping work or a rafaela b? Not on file 06/25/2023 Disabilities Answer Date Recorded Concentrating, Remembering, or Making Decisions Difficulty Not on file 06/25/2023 Doing Errands Independently Difficulty Not on fi le 06/25/2023 Education Answer Date Recorded Help with school or training? Not on file Preferred Language Not on file 06/25/2023 Sex and Gender Information Value Date Recorded Sex Assigned at Not on file Legal Sex Male 1:45 PM EDT Gender Identity Not on file Sexual Orientation Not on file Occupation Industry Job Start Date Job End Date Not on file Not on file Not on file Not on file Last Filed Vital Signs Vital Sign Reading Time Taken Comments Blood Pressure 118/82 08/28/2016 10:59 AM EST Pulse 64 08/28/2016 10:59 AM EST Temperature 36.2 C (97.2 F) 08/28/2016 10:59 AM EST Respiratory Rate 18 08/28/2016 10:59 AM EST Oxygen Saturation - - Inhaled Oxygen Concentration - - Weight 86.6 kg (191 lb) 08/28/2016 10:59 AM EST Height 175.3 cm (5' 9 ) 08/28/2016 10:59 AM EST Body Mass Index 28.21 08/28/2016 10:59 AM EST Plan of Treatment Health Maintenance Due Date Last Done Comments TDAP/TD VACCINES (1 - Tdap) 2000 ANNUAL PHYSICAL 08/28/2016 COVID-19 Vaccine (2023-2 5 season) 2024 INFLUENZA VACCINE 06/16/2025 HEPATITIS C SCREENING Completed 04/05/2017 , 10/25/2016 Pneumococcal Vaccine 0-49 Aged Out No longer eligible based on patient's age to complete this topic Procedures Procedure Name Priority Date/Time Associated Diagnosis Comments HEPATITIS PANEL, ACUTE Routine 04/05/2017 10:24 AM EDT from Last 3 Months or Most Recently Relevant to Health Maintenance Results * Hepatitis Panel, Acute (04/05/2017 10:24 AM EDT) Hep A IgM Negative Negative [facility] Hepatitis B Surface Ag Negative Negative [facility] Hep B Core IgM Negative Negative [facility] Hep C Virus Ab <0.1 0.0 - 0.9 s/co ratio [facility] Comment: Negative: < 0.8 Indeterminate: 0.8 - 0.9 Positive: > 0.9 The CDC recommends that a positive HCV antibody result be followed up with a HCV Nucleic Acid Amplification test (838858). 04/05/2017 10:2 4 AM EDT 04/05/2017 Narrative [facility]) - 04/06/2017 8:14 AM EDT Performed at: [facility] - [facility] [address] [place], [place] [id number] Cd Technician: Reid Brenner PhD, Phone: [phone] Patient Fasting: N us Presley Tapia MD LAB BLOOD ORDERABLES Final Resu lt [facility] ([facility]) [address] [place] [address], [facility] [address] [place] [address], from Last 3 Months or Most Recently Relevant to Health Maintenance [place] [address] [place] [id number] [place] [address] PPO Care Teams Returned Goods Inspector Relationship Specialty Start Date End Date Presley Tapia MD [address] [place] [address] PCP - General Family Medicine 08/28/16
--- OUTSIDE RECORDS SUMMARY | 2025-04-05 10:45 | XMS_ITS | Clinical Summary ---
Author Organization [facility] Address [address] [place] [address] Phone [email or web address] Care Team Providers Care Dial Refinisher Name Role Phone Brooks Lopez MD Primary Care Provider [phone] Allergies No known active allergies Medications Anoro [...] OPT OUT NO COPAY NB Care Teams Dial Refinisher Relationship Specialty Start Date End Date Brooks Lopez MD [address] [place] [facility] [address] [place] [address] PCP - General Competitive Intelligence Analyst 10/31/22
== END 2025-04-05 23:59 | disposition home or self-care (01) ==
LOC: RAD 10:43
PROVIDERS: PCP Family Medicine; Visit Provider Family Medicine
DX: R91.1 Solitary pulmonary nodule (principal)

== ENCOUNTER 2025-04-21 13:30 | Outpatient (CLI) | payer BC, SELFPAY ==
--- OUTSIDE RECORDS SUMMARY | 2024-09-07 07:30 | XMS_ITS ---
Author Organization [facility] Address [address] [facility] 36 [facility] [address] [phone] Care Team Providers Care Garment Tag Stringer Name Role Phone Brooks Lopez Unavailable [phone] Allergies No Known Allergies REASON FOR VISIT [...] Encounter Location Date Provider Diagnosis [facility] [address] [facility] 36 [facility] [address] [phone] 09/07/2024 Brooks Lopez Left-sided low back pain [...] Notes * KENDALL BOONEOB:1980 (44 yo M)Acc No.[id number]:09/07/2024 Progress Notes Patient: DANIEL ALICEA Provider: Leanna Lopez M.D. :1980 A ge:44 Y S ex:Male Date:09/07/2024 Address:[address] [place] [address], [id number] Subjective: * Chief Complaints: * 1 . [...] * Images: Billing Information: * Visit Code: 58437 Office Visit, Est Pt., Level 3. * Procedure Codes: * Electronic signature of Sabine Lopez MD on 04/21/2025 at 01:32 PM EDT Sign off status: Pending * Provider: Leanna Lopez M.D. Date: 1 11/08/2023 Generated for Misa martini/Horace/Warditting on: 0 04/21/2025 01:32 PM EDT History and Physical Notes * [...]
--- OUTSIDE RECORDS SUMMARY | 2024-09-25 06:30 | XMS_ITS ---
Author Organization [facility] Address 1210 [facility] 36 [facility] [address] [phone] Care Team Providers Care Supervisor Vacuum Metalizing Name Role Phone Jessica Brooks Unavailable [phone] Allergies No Known Allergies REASON FOR VISIT [...] Encounter Location Date Provider Diagnosis [facility] 1210 [facility] 36 [facility] [address] [phone] 09/25/2024 Brooks Lopez Left-sided low back pain [...] Notes * KENDALL BOONEOB:1980 (44 yo M)Acc No.[id number]:09/25/2024 Progress Notes Patient: DANIEL ALICEA Provider: Leanna Lopez M.D. :1980 A ge:44 Y S ex:Male Date:09/25/2024 Address:[address] [place] [address] Subjective: * Chief Complaints: * 1 . [...] * Images: Billing Information: * Visit Code: 22228 Office Visit, Est Pt., Level 3. * Procedure Codes: * Electronic signature of Sabine Lopez MD on 04/21/2025 at 01:32 PM EDT Sign off status: Pending * Provider: Leanna Lopez M.D. Date: 09/25/2024 Generated for Misa martini/Horace/Warditting on: 0 04/21/2025 [...]
--- OUTSIDE RECORDS SUMMARY | 2025-03-17 07:45 | XMS_ITS ---
Author Organization [facility] Address 1210 [facility] 36 [facility] [address] [place] [id number] Care Team Providers Care Stock And Station Agent Name Role Phone Brooks Lopez Unavailable [phone] Allergies No Known Allergies Results Component Value Reference Range Notes Urinalysis - Inhouse Reviewed date:03/17/2025 04:34:57 PM Interpretation: Performing Lab: Notes/Report: Color/Clarity Yellow/Clear Leuk Neg Nitrite Neg Urobili 3.2 Protein Neg pH 7.0 Blood Neg Sp. Gr. 1.020 Ketone Neg Bili Neg Gluc Neg H-TSH Reviewed date:04/05/2025 04:35:46 PM Interpretation:Normal Performing Lab: Notes/Report: TSH 2.13 0.465-4.68 uIU/mL H-Lipid Panel Reviewed date:04/05/2025 04:35:46 PM Interpretation:Chol 201, DLDL 130.92, HDL 37, ChlHDL 5.4 Performing Lab: Notes/Report: Patient Fasting? Y TRIG 127 30-150 mg/dl CHOL 201 140-200 mg/dl DLDL 130.92 100-129 mg/dL VLDL 25 0-40 mg/dL HDL 37 40-60 mg/dl CHLHDL 5.4 1-3.5 H-CMP Reviewed date:04/05/2025 04:35:46 PM Interpretation:BUN 8, AG Ratio 2.0 Performing Lab: Notes/Report: NA 137 136-145 mmol/L K 4.0 3.5-5.1 mmoL/L CL 102 98-107 mmol/L CO2 28 22.0-30.0 mmol/L GAP 11.0 5-15 mEq/L BUN 8 9-20 mg/dl CREATT 0.80 0.66-1.25 mg/dl GFRAA 128 >60 ML/MIN EGFR 106 >60 ml/min GLU 97 74-100 mg/dl CA 9.1 8.4-10.2 mg/dl BILIT 0.5 0.2-1.3 mg/dl AST 34 17-59 U/L ALT 47 12-78 U/L TP 6.4 6.3-8.2 g/dl ALB 4.3 3.5-5.0 g/dl GLOB 2.1 1.3-3.2 g/dL AGRATIO 2.0 1.1-1.8 ALP 68 38-126 U/L MRI : Spine, Lumbosacral, wi thout contrast Reviewed date:04/05/2025 04:35:46 PM Interpretation:degenerative disease, most pronounced lower l-spine Normal Performing Lab: Notes/Report: degenerative disease, most pronounced lower l-spine Normal REASON FOR VISIT back & side pain poss kidney stone Medications Medication SIG (Take, Route, Frequency, Duration) Notes Start Date End Date Status Loratadine 10 mg 1 tablet Orally Once a day; Duration: 30 days Active Omeprazole 40 MG 1 cap(s) orally once a day; Duration: 30 days Active Montelukast Sodium 10 mg TAKE 1 TABLET DAILY Active tiZANidine HCl 4 mg TAKE 1 TABLET DAILY AT BEDTIME NEEDED Active CPAP machine and supplies - as directed AutoPAP 03/01 as directed 10/14/2024 Active Anoro Ellipta 62.5-25 MCG/ACT use 1 inhalation daily Activ e Meloxicam 15 MG 1 tablet Orally Once a day; Duration: 30 days 03/17/2025 Active Social History Tobacco Use: Social History Observation Description Date Details (start date - stop date) Current Smoker NA - NA CURRENT TOBACCO USE: Question Answer Notes Are you a: current every day smoker 1 PPD Problems Problem Type SNOMED Code ICD Code Onset Dates Problem Status W/U Status Risk Notes Problem Pulmonary nodule, right (R91.1) Active confirmed Problem Arthropathy of lumbar facet joint (943485386) Lumbar facet arthropathy (M47.816) Active confirmed Vital Signs Blood pressure systolic 122 mm Hg 03/17/20 25 Blood pressure diastolic 78 mm Hg 025 Heart Rate 88 /min 03/17/2025 Height 69 in 03/17/2025 Weight 201 lbs 03/17/2025 BMI 29.68 kg/m2 03/17/2025 Encounters Encounter Location Date Provider Diagnosis [facility] [address] 36 [facility] [address] [phone] 03/17/2025 Brooks Douglass Right flank pain R10 .9 ; Pulmonary nodule, right R91.1 ; Degeneration of intervertebral disc of lumbar region, unspecified whether pain present M51.369 ; Lumbar facet arthropathy M47.816 ; Hyperlipidemia, unspecified hyperlipidemia type E78.5 ; Colon cancer screening Z12.11 ; History of colon polyps Z86.0100 ; Other chronic pain G89.29 ; Low back pain, unspecified M54.50 and BMI 29.0-29.9,adult Z68.29 Assessments Encounter Date Diagnosis (ICD Code) Assessment Notes Treatment Notes Treatment Clinical Notes Section Notes 03/17/2025 Right flank pain (ICD-10 - R10.9) 03/17/2025 Pulmonary nodule, right (ICD-10 - R91.1) 03/17/2025 Degeneration of intervertebral disc of lumbar region, unspecified whether pain present (ICD-10 - M51.369) 03/17/2025 Lumbar facet arthropathy (ICD-10 - M47.816) 03/17/2025 Hyperlipidemia, unspecified hyperlipidemia type (ICD-10 - E78.5) 03/17/2025 Colon cancer screening (ICD-10 - Z12.11) 03/17/2025 History of colon polyps (ICD-10 - Z86.0100) 03/17/2025 Other chronic pain (ICD-10 - G89.29) 03/17/2025 Low back pain, unspecified (ICD-10 - M54.50) 03/17/2025 BMI 29.0-29.9,adult (ICD-10 - Z68.29) 03/17/2025 Other OK to extend FMLA for another 6 months due to back pain. Plan Of Treatment Medication Medication Name Sig Start Date Stop Date Notes Meloxicam 15 MG 1 tablet Orally Once a day; Duration: 30 days 03/17/2025 Treatment Notes Assessment Notes Other OK to extend FMLA fo r another 6 months due to back pain. Pending Test Test Name Order Date colonoscopy 03/17/2025 CT Scan : Chest with IV contrast 025 Next Appt Details Follow Up: via phone to repo rt test results, Reason: Progress Notes * KENDALL BOONEOB:1980 (44 yo M)Acc No.[id number]:03/17/2025 Progress Notes Patient: DANIEL ALICEA Provider: Leanna Lopez M.D. :1980 A ge:44 Y S ex:Male Date:03/17/2025 Address:[address] [place] [address] Subjective: * Chief Complaints: * 1 . Back & side pain poss kidney stone. * HPI: M tram Reproductive: 44 year old male presents with c/o flank pain P t complains of rt flank pain that started on Saturday. Pt states he had an urge to urinate but did not produce a lot on Saturday night. Pt states that pain has started to improve today. * ROS: C ARDIOLOGY: no D izziness. n o C hest pain. D ERMATOLOGY: no R lola. n o H shy. G ASTROENTEROLOGY: no N ausea. n o V omiting. * Medical History: A sthma, Acid Reflux, Colon polyps, Hemorrhoids, Plantar fasciitis, Hyperlipidemia, Kidney stones. * Surgical History: L t Meniscus , Scrotum Cyst Removal 10/2022, colonoscopy 2019. * Hospitalization/Major Diagno stic Procedure: D enies Past Hospitalization. * Family History: M other: diagnosed with Diabetes. M aternal Grand Mother: diagnosed with Stroke, Heart Disease. P aternal uncle: diagnosed with Diabetes. S iblings: diagnosed with Hypertension. 2 brother(s) . 3 son(s) , 1 daughter(s) . . * Social History: C URRENT TOBACCO USE: Yes A re you a: c urrent every day smoker 1 PPD. C affeine: yes, frequency: 3 times daily. Alcohol: no. * Medications: T aking Anoro Ellipta 62.5-25 MCG/ACT Aerosol Powder Breath Activated use 1 inhalation daily , Taking tiZANidine HCl 4 mg Tablet TAKE 1 TABLET DAILY AT BEDTIME NEEDED , Taking CPAP machine and supplies - - as directed AutoPAP 03/01 as directed , Taking Montelukast Sodium 10 mg Tablet TAKE 1 TABLET DAILY , Taking Loratadine 10 mg Tablet 1 tablet Orally Once a day , Taking Omeprazole 40 MG Capsule Delayed Release 1 cap(s) orally once a day , Medication List reviewed and reconciled with the patient * Allergies: N .K.D.A. Objective: * Vitals: W t: 201, Temp: 98.0, BP: 122/78, HR: 88, Nurse: sherry, Ht: 69, BMI:29.68. * Examination: G eneral Examination: General Appearance: N AD. H eart: R SR. L ungs:?clear to auscultation. B ack: n o CVA tenderness. E xtremities: n o leg edema.? C T scan from ER visit last year reviewed with patient. It shows a lung nodule and abnormal L5-S1 appearance. Assessment: * Assessment: 1. R ight flank pain - R10.9 (Primary) 2 . P ulmonary nodule, right - R91.1? 3. D egeneration of intervertebral disc of lumbar region, unspecified whether pain present - M51.369 4 . L umbar facet arthropathy - M47.816 5 . H yperlipidemia, unspecified hyperlipidemia type - E78.5 6 . C olon cancer screening - Z12.11 7 . H istory of colon polyps - Z86.0100 8 .?Other chronic pain - G89.29 9 . L ow back pain, unspecified - M54.50 & #160; 1 0. B NE 29.0-29.9,adult - Z68.29 Plan: * Treatment: Value Reference Range C olor/Clarity Yellow/Clear * L euk Neg * N itrite Neg * U robili 3.2 * P rotein Neg * p H 7.0 * B lood Neg * S p. Gr. 1.020 * K etone Neg * B jennifer Neg * G jessica Neg * Bree Harris 03/17/2025 12:02:5 0 PM EDT > Provider reviewed results while patient in office. 2.?Pulmonary nodule, right?Imaging: CT Scan : Chest with IV contrast* [place] 03/23/2025 01:12 :43 PM EDT > auth#[id number]; valid 03/23/2025- 04/21/2025; CPT code [id number] initially declined this test, but would now like to do this; auth is still valid through 04/21/2025; sending to [facility] Scheduling to reschedule 3.?Degeneration of intervertebral disc of lumbar region, unspecified whether pain present?Imaging: MRI : Spine, Lumbosacral, without contrast (Performed Date - 03/29/2025)?degenerative disease, most pronounced lower l-spine Normal* Shannon [place] 03/23/2025 01:07 :25 PM EDT > auth#[id number]; valid 03/23/2025- 04/21/2025; CPT code 21181; faxed to [facility] Scheduling ChuckieLing 04/05/2025 04:35:30 PM EDT > See phone encounter 4.?Lumbar facet arthropathy?Imaging: MRI : Spine, Lumbosacral, without contrast (Performed Date - 03/29/2025)?degenerative disease, most pronounced lower l-spine Normal* Shannon [place] 03/23/2025 01:07 :25 PM EDT > auth#[id number]; valid 03/23/2025- 04/21/2025; CPT code 88613; faxed to [facility] Scheduling ChuckieLing 04/05/2025 04:35:30 PM EDT > See phone encounter 5.?Hyperlipidemia, unspecified hyperlipidemia type?LAB: H-TSH (Collection Date & Time - 03/19/2025 08:34 AM)?Normal* Value Reference Range T SH 2.13 0.465-4.68 - uIU/mL * Ling Noguera 04/05/2025 04: 35:30 PM EDT > See phone encounter ?LAB: H-Lipid Panel (Collection Date & Time - 03/19/2025 08:34 AM)?Chol 201, DLDL 130.92, HDL 37, ChlHDL 5.4* Value Reference Range T RIG 127 30-150 - mg/dl * C HOL 201 H 140-200 - mg/dl * D LDL 130.92 H 100-129 - mg/dL * V LDL 25 0-40 - mg/dL * H DL 37 L 40-60 - mg/dl * C HLHDL 5.4 H 1-3.5 - * Ling Noguera 04/05/2025 04: 35:30 PM EDT > See phone encounter ?LAB: H-CMP (Collection Date & Time - 03/19/2025 08:34 AM)?BUN 8, AG Ratio 2.0* Value Reference Range N A 137 136-145 - mmol/L * K 4.0 3.5-5.1 - mmoL/L * C L 102 98-107 - mmol/L * C O2 28 22.0-30.0 - mmol/L * G AP 11.0 5-15 - mEq/L * B UN 8 L 9-20 - mg/dl * C REATT 0.80 0.66-1.25 - mg/dl * G FRAA 128 >60 - ML/MIN * E GFR 106 >60 - ml/min * G CARMEN 97 74-100 - mg/dl * C A 9.1 8.4-10.2 - mg/dl * B ILIT 0.5 0.2-1.3 - mg/dl * A ST 34 17-59 - U/L * A LT 47 12-78 - U/L * T P 6.4 6.3-8.2 - g/dl * A LB 4.3 3.5-5.0 - g/dl * G LOB 2.1 1.3-3.2 - g/dL * A GRATIO 2.0 H 1.1-1.8 - * A LP 68 38-126 - U/L * Ling Noguera 04/05/2025 04: 35:30 PM EDT > See phone encounter 6.?Colon cancer screening?Imaging: colonoscopy* Dr. Block on a SaturdayShannon Presley 03/17/2025 01:26:15 PM EDT > faxed to Dr. Block office 7.?History of colon polyps?Imaging: colonoscopy* Dr. Block on a SaturdayShannon Presley 03/17/2025 01:26:15 PM EDT > faxed to Dr. Block office 8.?Others? Notes: OK to extend FMLA for another 6 months due to back pain.?? * Procedure Codes: 8 1002 Urinalysis, no micro, G8420 BMI<30 AND >=22 CALC & DOCU, G8783 BP SCR PRFRM RCMDD DEFIND SCR INTVL, G8752 MOST RECENT SYSTOLIC BP < 140MM HG, G8754 MOST RECENT DIASTOLIC BP < 90MM HG * Follow Up: v ia phone to report test results * Images: Billing Information: * Visit Code: 61637 Office Visit, Est Pt., Level 4. * Procedure Codes: 61913 Urinalysis, no micro. G8420 BMI<30 AND >=22 CALC & DOCU. G8783 BP SCR PRFRM RCMDD DEFIND SCR INTVL. G8752 MOST RECENT SYSTOLIC BP < 140MM HG. G8754 MOST RECENT DIASTOLIC BP < 90MM HG. * Electronic signature of Sabine Lopez MD on 04/21/2025 at 01:32 PM EDT Sign off status: Pending * Provider: Leanna Lopez M.D. Date: 0 03/17/2025 Generated for Misa martini/Horace/eTransmitting on: 0 04/21/2025 01:32 PM EDT History and Physical Notes * HPI (History of Present Illness) Category Sub-Category Detail Notes Category Not es Male Reproductive flank pain Pt complains o f rt flank pain that started on Saturday. Pt states he had an urge to urinate but did not produce a lot on Saturday night. Pt states that pain has started to improve today Examination Category Sub-Category Detail Notes Category Not es General Examination Heart: RSR CT scan from ER visit last year reviewed with patient. It shows a lung nodule and abnormal L5-S1 appearance Lungs: clear to auscultatio n Extremities: no leg edema General Appearance: NAD Back: no CVA tenderness
--- NOTE | 2025-04-21 13:32 | CT_ITS ---
FINAL REPORT TECHNIQUE: Routine axial images were obtained from the lung apices to below the diaphragm following IV contrast administration. Individualized dose reduction techniques using automated exposure control or adjustment of the mA and/or kV according to the patient size were employed. CLINICAL HISTORY: RT PULMONARY NODULE COMPARISON: CT abdomen and pelvis 05/05/2024 FINDINGS: Mediastinal vasculature is well opacified. There is no mediastinal mass or adenopathy. No pleural or pericardial effusion is seen. Limited images of the upper abdomen demonstrate diffuse fatty infiltration of the liver. Lung windows demonstrate a 7 mm noncalcified nodule in the inferior right upper lobe which is stable and well seen on image 41 of series 2. On the coronal images, this appears more discoid than spherical and lies along the minor fissure. IMPRESSION: Stable 7 mm fissural nodule. Follow-up in 1 year recommended.. Reviewed, Interpreted and Dictated by Markell Clemente MD Transcribed by Angeline Oropeza Authenticated and [facility]
--- OUTSIDE RECORDS SUMMARY | 2025-04-21 13:33 | XMS_ITS | Patient Health Record ---
Author Organization [facility] Address [address] [facility] [address] [facility] [address] [place] [id number] Care Team Providers Care Supervisor Film Processing Name Role Phone Brooks Lopez Unavailable [phone] Allergies No Known Allergies Results Component Value [...] degenerative disease, most pronounced lower l-spine Normal sleep study Reviewed date:10/07/2024 09:46:30 AM Interpretation:mild [...] Notes Problem Arthropathy of lumbar facet joint (540025460) Lumbar facet arthropathy (M47.816) Active confirmed Problem Obstructive sleep apnea (24149541) Obstructive sleep apnea (G47.33) Active confirmed Problem Chronic pain (27235652) Other chronic pain (G89.29) Active confirmed Problem Uncomplicated mild persistent asthma (732518902) Mild persistent asthma without complication (J45.30) Active confirmed Problem Hyperlipidaemia (17585741) Hyperlipidemia, unspecified hyperlipidemia type (E78.5) Active confirmed Problem Cigarette smoker (60981207) Cigarette smoker (F17.210) Active confirmed Problem Solitary pulmonary nodule (466892534) Pulmonary nodule, right (R91.1) Active confirmed Vital Signs Heart Rate 88 /min 03/17/2025 Blood pressure diastolic 78 mm Hg 03/17/2025 Height 69 in 03/17/2025 Blood pressure systolic 122 mm Hg 03/17/2025 Weight 201 lbs 03/17/2025 BMI 29.68 kg/m2 03/17/2025 Encounters Encounter Location Date Provider Diagnosis [facility] [address] [facility] [address] [id number] 07/30/2024 Brooks Lyme Snoring R06.83 ; Witnessed apneic spells R06.81 ; Other chronic pain G89.29 and Low back pain, unspecified M54.50 [facility] [address] [place], [place] [id number] 09/07/2024 Brooks Lyme Left-sided low back pain without sciatica, unspecified chronicity M54.50 ; Muscle spasm of back M62.830 ; Chronic cough R05.3 and Mild persistent asthma without complication J45.30 [facility] [address] [place], [place] [id number] 09/25/2024 Brooks Lyme Left-sided low back pain without sciatica, unspecified chronicity M54.50 and Muscle spasm of back M62.830 [facility] [address] [place], [place] [id number] 03/17/2025 Brooks Lyme Right flank pain R10 .9 ; Pulmonary nodule, right R91.1 ; Degeneration of intervertebral disc of lumbar region, unspecified whether pain present M51.369 ; Lumbar facet arthropathy M47.816 ; Hyperlipidemia, unspecified hyperlipidemia type E78.5 ; Colon cancer screening Z12.11 ; History of colon polyps Z86.0100 ; Other chronic pain G89.29 ; Low back pain, unspecified M54.50 and BMI 29.0-29.9,adult Z68.29 [facility] [address] [place], [place] [id number] 08/17/2024 Brooks Lyme [facility] [address] [place], [place] [id number] 10/07/2024 Brooks Lyme [facility] [address] [place], [place] [id number] 04/05/2025 Brooks Lyme Assessments Encounter Date Diagnosis (ICD Code) Assessment [...] Treatment Pending Test Test Name Order Date colonoscopy 03/17/2025 CT Scan : Chest, without contrast 2024 CT Scan : Chest with IV contrast 025 Insurance Providers Payer Name Payer Address Payer Phone Subscriber Number Group Number Insured Name Patient Relationship to Insured Coverage Start Date Coverage End Date [employer] [address] [place] [address] [phone] [id number] HARIRS Self - patient is the insured Medical (General) History Medical History History ICD Code Asthma Acid Reflux Colon polyps hemorrhoids plantar fasciitis hyperlipidemia kidney stones Surgical History Surgery Date(Month/Year) Lt Meniscus Scrotum Cyst Removal 10/2022 colonoscopy 2019
--- OUTSIDE RECORDS SUMMARY | 2025-04-21 13:33 | XMS_ITS | Clinical Summary ---
[facility] Address [address] [place] [address] Care Team Providers Care Pathology Laboratory Director Name Role Phone Presley Tapia MD Primary Care Provider [phone] Allergies Active Allergy Reactions Criticality Noted Date [...] with a HCV Nucleic Acid Amplification test (430880). 04/05/2017 10:2 4 AM EDT 04/05/2017 Narrative [facility] ([facility]) - 04/06/2017 8:14 AM EDT [facility] at: [facility] - [facility] [address] [place], [place] [id number] Glass Presser: Reid Brenner PhD, Phone: [phone] Patient Fasting: N us Presley Tapia MD LAB BLOOD ORDERABLES Final Resu lt [facility] ([facility]) [address] [place] [address], [facility] [address] [place] [address], from Last 3 Months or Most Recently Relevant to Health Maintenance [place] [address] [address] [place] [id number] [place] [address] PPO Care Teams Pathology Laboratory Director Relationship Specialty Start Date End Date Presley Tapia MD [address] [place] [address] PCP - General Family Medicine 08/28/16
--- OUTSIDE RECORDS SUMMARY | 2025-04-21 13:33 | XMS_ITS | Clinical Summary ---
Author Organization [facility] Address [address] [place] [address] Phone [email or web address] Care Team Providers Care Senior Financial Reporting Analyst Name Role Phone Brooks Lopez MD Primary Care Provider [phone] Allergies No known active allergies Medications Anoro [...] HIV Screening 1981 Hepatitis C Screening 1981 HPV Immunization (1 - Male 3 -dose series) 1996 Annual Preventive Exam 1999 Hep B Infection Screening - Triple Screen 1999 Hepatitis B Immunization (1 of 3 - 19+ 3-dose series) 2000 Pneumococcal: Ped (0 to 5 Yr s) and At-Risk Member (6 to 64 Yrs) (1 of 2 - PCV) 2000 Tetanus Diphtheria and Pertu ssis Immunization (1 - Tdap) 2000 Covid-19 Immunization (1 - 2 -25 season) 2024 Influenza Immunization (#1) 2025 HIB [...] OPT OUT NO COPAY NB Care Teams Senior Financial Reporting Analyst Relationship Specialty Start Date End Date Brooks Lopez MD [address] [place] [facility] [address] [facility] PCP - General Flume Ride Operator 10/31/22
[2025-04-21] MEDS: SODIUM CHLORIDE 0.9% 10ML SYR (RAD ONLY) 10 ML IV (14:00)
[2025-04-21] MEDS: IOPAMIDOL-370 (76%);100ML BOTTLE 75 ML IV (14:00)
== END 2025-04-21 23:59 | disposition home or self-care (01) ==
LOC: RAD 13:31
PROVIDERS: PCP Family Medicine; Visit Provider Family Medicine
DX: R91.1 Solitary pulmonary nodule (principal)
CPT/HCPCS: 71260; Q9967

== ENCOUNTER 2025-06-02 08:30 | Day surgery (SDC) | payer BC, SELFPAY ==
[2025-05-26 15:14] VITALS: BMI 28.8
--- NOTE | 2025-05-30 11:40 | EXP.HP ---
History of Present Illness *Admission Date: 06/02/25 *History of present illness: Mr. Lutz is a 45-year-old gentleman who is here for diagnostic colonoscopy. The patient has had a lot of bright red rectal bleeding both on the tissue and in the toilet bowl. This usually occurs with his bowel movement and can sometimes be dripping into the commode. Sometimes the blood will coat the outside of the stool. He also has noted some mucus with his bowel movements. 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 The patient did have a CAT scan in April 2024 and had scattered diverticula noted in the sigmoid colon. The patient reports no weight loss or family history of colon cancer. The patient did have a colonoscopy in November 2021 and had 6 colon polyps (hyperplastic polyps x 6) which were removed (Herve Ko MD). The examination is deemed medically necessary for screening colonoscopy. The patient has been seen, interviewed and examined prior to the procedure by both myself and the anesthesia provider. [facility] Disclaimer: The information contained in this section may have been updated after the patient was seen, as this information can be updated by other users. 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 caffeine: Yes Have you lived/traveled outside US in past 30 days?: No Contact w/someone who lives/traveled outside US past 30 days?: No Exposure to someone with infectious disease in past 14 days?: No Do you have a fever (greater than 100.4 F or 38 C)?: No Have you tested positive for COVID-19?: No Exposed to someone with COVID-19 in past 14 days?: No Do you have a sore throat?: No Do you have a cough?: No Do you have any weakness?: No Do you have any diarrhea?: No Are you experiencing any unusual bleeding?: No Do you have any muscle aches/pain?: No Do you have any abdominal pain?: No Are you experiencing loss of taste or smell?: No Other Medical History Have you received the Flu Vaccine for this season: No Have you received the Pneumonia Vaccine: No Review of Systems Review of Systems Review of systems (narrative): Negative *Cardiovascular Comments: Negative *Gastrointestinal Comments: Negative *Genitourinary Comments: Negative *Musculoskeletal Comments: Negative *Neurologic Comments: Negative Meds Home Medications and Allergies Home Medications ?Medication ?Instructions ?Recorded ?Confirmed ?Type omeprazole 40 mg capsule,delayed 40 mg PO DAILY GERD 05/14/19 06/02/25 History release fluticasone 250 mcg-salmeterol 50 1 inh IH BID Asthma 11/22/21 06/02/25 History mcg/dose blistr powdr for inhalation New Prescriptions to Start Prescriptions: Allergies Allergy/AdvReac Type Severity Reaction Status Date / Time No Known Allergies Allergy Verified 06/02/25 08:39 Exam *Routine HEENT Exam Head: Present normocephalic Eye: Present EOMI and PERRL ENT: Present mucous membranes moist *Routine Neck Exam Neck: Present supple *Routine Respiratory Exam Respiratory: Present CTA bilaterally *Routine Cardiovascular Exam Cardiovascular: Present RRR *Routine Abdominal Exam Abdominal: Present soft and normoactive bowel sounds; Absent tenderness *Routine Rectal Exam Rectal:: deferred *Routine Genitalia Exam Genitalia:: deferred *Routine Extremities Exam Extremities: Absent cyanosis, clubbing or edema *Routine Skin Exam Skin: Present warm; Absent rash *Routine Neurological Exam Neurological: Present alert and oriented X3 Assessment and Plan *Assessment and plan (1) Personal history of colon polyps, unspecified: Status: Acute Category: Medical Code(s): Z86.0100 - Personal history of colon polyps, unspecified (2) Bright red rectal bleeding: Status: Acute Category: Medical Code(s): K62.5 - Hemorrhage of anus and rectum (3) Abdominal cramps: Status: Acute Category: Medical Code(s): R10.9 - Unspecified abdominal pain (4) Mucus in stool: Status: Acute Category: Medical Code(s): R19.5 - Other fecal abnormalities Plan A/P: 1. Bright red rectal bleeding, lower abdominal cramps and mucus in stool with personal history of colon polyps is the preprocedural diagnosis. The patient will be anesthetized/sedated using MAC sedation. The patient has been seen and examined. Cardiac and lung assessment prior to the examination is stable. Proceed with planned diagnostic colonoscopy.
--- NOTE | 2025-06-02 07:13 | HMH.PROCNOTE ---
[facility] Procedure Note Date: 06/02/25 Time: 10:47 Procedure Note:: Colonoscopy Procedure Report: Colonoscopy with monopolar ablation/coagulation of internal hemorrhoids Endoscopist: Agusto Block II, MD Referring physician: Brooks Lopez MD Date of Procedure: June 02, 2025 Equipment: Olympus [id number] adult colonoscope Sedation: MAC sedation Indication: Mr. Lutz is a 45-year-old gentleman who is here for diagnostic colonoscopy. The patient has had a lot of bright red rectal bleeding both on the tissue and in the toilet bowl. This usually occurs with his bowel movement and can sometimes be dripping into the commode. Sometimes the blood will coat the outside of the stool. He also has noted some mucus with his bowel movements. 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 The patient did have a CAT scan in April 2024 and had scattered diverticula noted in the sigmoid colon. The patient reports no weight loss or family history of colon cancer. The patient did have a colonoscopy in November 2021 and had 6 colon polyps (hyperplastic polyps x 6) which were removed (Herve Ko MD). The examination is deemed medically necessary for screening colonoscopy. Procedure: Prior to the procedure, a history and physical exam was performed, and patient's medications and allergies were reviewed. The risks, benefits and alternatives of the sedation and procedure were discussed with the patient. All questions were answered and informed consent was obtained. The patient was brought to the procedure room. Patient identification and proposed procedure were verified by the physician and the nurse. The patient was placed in a left lateral decubitus position and the scope was passed under direct vision. Throughout the procedure, the patient's blood pressure, pulse, and oxygen saturations were monitored continuously. The colonoscopy was accomplished without difficulty. The patient tolerated the procedure well. Findings: On digital rectal examination there was normal rectal tone. There were no external hemorrhoids. There was an external posterior hemorrhoidal tag. The prostate was 2+, smooth, soft, symmetric without nodules. The colonoscope was introduced through the anal canal to the rectum and advanced to the cecum. The ileocecal valve and appendiceal orifice were identified. The scope was advanced a short distance into the ileum which appeared grossly normal. The scope was then withdrawn into the colon. The cecum, ascending and transverse colon and mucosa were grossly normal. There were scattered diverticuli throughout the descending and sigmoid colon (LEFT colon). The rectum itself was normal. Upon retroflexion within the rectum there were grade 2-3 internal hemorrhoids. 3 columns of hemorrhoids were ablated/coagulated using monopolar ablation. The preparation was excellent throughout with Berlin Preparation Score of 9. The cecal time was 12 minutes. Impression: 1. Left-sided diverticulosis 2. Grade 2-3 internal hemorrhoids status post monopolar ablation/coagulation Plan: The patient's rectal bleeding is internal hemorrhoidal bleeding. I would recommend psyllium bulking fiber supplementation on a long-term daily maintenance basis. I would avoid NSAIDs. He also is having some lower abdominal cramps (i.e. spastic diverticular disease). We will discuss dietary measures to follow.
[2025-06-02 08:42] VITALS: BP 129/78; PULSE 71; RESP 18; TEMP 36.4; O2SAT 96
[2025-06-02] MEDS: LACTATED RINGERS 1000ML 1,000 ML 50 ML IV (08:47)
--- NOTE | 2025-06-02 09:03 | EXP.ANES.CKL ---
[facility] Disclaimer: The information contained in this section may have been updated after the patient was seen, as this information can be updated by other users. 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: Yes Have you lived/traveled outside US in past 30 days?: No Contact w/someone who lives/traveled outside US past 30 days?: No Exposure to someone with infectious disease in past 14 days?: No Do you have a fever (greater than 100.4 F or 38 C)?: No Have you tested positive for COVID-19?: No Exposed to someone with COVID-19 in past 14 days?: No Do you have a sore throat?: No Do you have a cough?: No Do you have any weakness?: No Do you have any diarrhea?: No Are you experiencing any unusual bleeding?: No Do you have any muscle aches/pain?: No Do you have any abdominal pain?: No Are you experiencing loss of taste or smell?: No [facility] Anesthesia Checklist Patient Identification Patient Identification: Verbal (Name & ) Structural Data Admitted From: Home Planned Operative Procedure/s: colonoscopy Consent for Planned Operative Procedure(s) Verified: Yes NPO Status Verified Time NPO: 00:00 Airway Assessment Mallampati Score:: Class II C-Spine Mobility Assessed: Yes TMJ Mobility Assessed: Yes Dentition: Partials Neurological Assessment Level of Consciousness: Awake, Alert and Appropriate Anesthesia Plan Anesthesia Risk discussed: Yes Anesthesia Plan: Verified ASA Class: II Anesthesia Type: MAC
[2025-06-02 10:50] VITALS: BP 94/63; PULSE 74; RESP 15; TEMP 36.1; O2SAT 95
[2025-06-02 11:00] VITALS: BP 93/63; PULSE 70; RESP 15; TEMP 36.1; O2SAT 97
[2025-06-02 11:09] VITALS: BP 100/53; PULSE 75; RESP 17; TEMP 36.1; O2SAT 96
== END 2025-06-02 11:19 | disposition home or self-care (01) ==
PROVIDERS: PCP Family Medicine; Visit Provider Internal Medicine Gastroenterology
PROC: 0DJD8ZZ Inspection of Lower Intestinal Tract, Via Natural or Artificial Opening Endoscopic (ICD-10-PCS; CPT 45378; principal; 2025-06-02 10:00)
DX: K64.2 Third degree hemorrhoids (principal); K57.30 Diverticulosis of large intestine without perforation or abscess without bleeding; K21.9 Gastro-esophageal reflux disease without esophagitis; J45.909 Unspecified asthma, uncomplicated; L40.9 Psoriasis, unspecified; Z86.0100 Personal history of colon polyps, unspecified; Z79.899 Other long term (current) drug therapy
CPT/HCPCS: 45388; J2003; J2704; J7120

== ENCOUNTER 2025-07-19 11:48 | Day surgery (SDC) | payer BC, SELFPAY ==
[2025-07-16 14:22] VITALS: BMI 28.5
--- NOTE | 2025-07-16 15:25 | P.HP_ITS ---
History of Present Illness *Admission Date: 07/19/25 *History of present illness: Mr. Lutz is a 45-year-old gentleman who is here for diagnostic EGD. He does have a history of GERD. The examination is deemed medically necessary for diagnostic EGD. The patient has been seen, interviewed and examined prior to the procedure by both myself and the anesthesia provider. [facility] Disclaimer: The information contained in this section may have been updated after the patient was seen, as this information can be updated by other users. 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 Have you lived/traveled outside [place] in past 30 days?: No Contact w/someone who lives/traveled outside [place] past 30 days?: No Exposure to someone with infectious disease in past 14 days?: No Do you have a fever (greater than 100.4 F or 38 C)?: No Have you tested positive for COVID-19?: No Exposed to someone with COVID-19 in past 14 days?: No Do you have a sore throat?: No Do you have a cough?: No Do you have any weakness?: No Are you experiencing any nausea/vomitting?: No Do you have any diarrhea?: No Are you experiencing any unusual bleeding?: No Do you have any muscle aches/pain?: No Do you have any abdominal pain?: No Are you experiencing loss of taste or smell?: No Other Medical History Have you received the Flu Vaccine for this season: No Have you received the Pneumonia Vaccine: No Review of Systems Review of Systems Review of systems (narrative): Negative *Cardiovascular Comments: Negative *Gastrointestinal Comments: Negative *Genitourinary Comments: Negative *Musculoskeletal Comments: Negative *Neurologic Comments: Negative Meds Home Medications and Allergies Home Medications ?Medication ?Instructions ?Recorded ?Confirmed ?Type omeprazole 40 mg capsule,delayed 40 mg PO DAILY GERD 0 05/14/19 07/19/25 History release fluticasone 250 mcg-salmeterol 50 1 inh IH DAILY Asthm a 11/22/21 07/19/25 History mcg/dose blistr powdr for inhalation New Prescriptions to Start Prescriptions: Allergies Allergy/AdvReac Type Severity Reaction Status Date / Time No Known Allergies Allergy Verified 07/19/25 12:05 Exam Data for Last 24 hours I & O for Last 24 hours: Intake & Output 07/13/25 07/14/25 07/15/25 07/16/25 23:59 23:59 23:59 23:59 Weight 193 lb *Routine HEENT Exam Head: Present normocephalic Eye: Present EOMI and PERRL ENT: Present mucous membranes moist *Routine Neck Exam Neck: Present supple *Routine Respiratory Exam Respiratory: Present CTA bilaterally *Routine Cardiovascular Exam Cardiovascular: Present RRR *Routine Abdominal Exam Abdominal: Present soft and normoactive bowel sounds; Absent tenderness *Routine Rectal Exam Rectal:: deferred *Routine Genitalia Exam Genitalia:: deferred *Routine Extremities Exam Extremities: Absent cyanosis, clubbing or edema *Routine Skin Exam Skin: Present warm; Absent rash *Routine Neurological Exam Neurological: Present alert and oriented X3 Assessment and Plan *Assessment and plan (1) GERD (gastroesophageal reflux disease): Status: Acute Category: Medical Code(s): K21.9 - Gastro-esophageal reflux disease without esophagitis Plan A/P: 1. GERD is the preprocedural diagnosis. The patient will be anesthetized/sedated using MAC sedation. The patient has been seen and examined. Cardiac and lung assessment prior to the examination is stable. Proceed with planned diagnostic EGD.
--- NOTE | 2025-07-19 07:06 | P.PCN_ITS ---
[facility] Procedure Note Date: 07/19/25 Time: 13:29 Procedure Note:: Upper Endoscopy Procedure Report: Esophagogastroduodenoscopy with cold biopsies Endoscopost: Agusto Block II, MD Referring Physician: Brooks Lopez MD Date of Procedure: July 19, 2025 Equipment: Olympus GIF-1100 standard upper endoscope Sedation: MAC sedation Indications: Mr. Lutz is a 45-year-old gentleman who is here for diagnostic EGD. He does have a long history of GERD with heartburn and reflux for over 5 years. The patient does state that he takes omeprazole 40 mg by mouth daily and continues to have some breakthrough heartburn and reflux and has to use OTC TUMS. He does state that if he eats late, he will have reflux at nighttime when he is supine. He has cut out carbonated beverages over the last couple of months. He reports no epigastric abdominal pain, nausea, early satiety or belching. He does get some bloating which improved after stopping the pop/carbonation. He reports no dysphagia. This is his first upper endoscopy. The examination is deemed medically necessary for diagnostic EGD. Procedure: Prior to the procedure, a history and physical exam was performed, and patient's medications and allergies were reviewed. The risks, benefits and alternatives of the sedation and procedure were discussed with the patient. All questions were answered and informed consent was obtained. The patient was brought to the procedure room. Patient identification and proposed procedure were verified by the physician and the nurse. The patient was placed in a left lateral decubitus position and the scope was passed under direct vision. Throughout the procedure, the patient's blood pressure, pulse, and oxygen saturations were monitored continuously. The upper GI endoscopy was accomplished without difficulty. The patient tolerated the procedure well. Findings: The scope was passed directly into the upper esophagus and advanced to the third portion of the duodenum. The post bulbar duodenum and duodenal bulb were normal with normal mucosa and conniventes. There was a small periampullary diverticulum. 2 cold biopsies were taken from the second portion of the duodenum for the disaccharidase assay. The scope was withdrawn through a normal duodenal bulb and pylorus into the stomach. There was some mild proximal chronic gastritis of the body and fundus. Cold biopsies were taken along the lesser curvature of the stomach for H. pylori. Upon retroflexion there was a small 1 to 2 cm hiatal hernia. The scope was then withdrawn into the esophagus. There was no evidence of reflux esophagitis but there was a single tongue of salmon-colored mucosa that was biopsied to rule out intestinal metaplasia/short segment Lees's esophagus. There also appeared to be very faint esophageal varices. There were some tertiary contractions and evidence of mild esophageal dysmotility. The remainder of the esophageal mucosa was normal. Impression: 1. Nonerosive GERD with mild esophageal dysmotility and small 1 to 2 cm hiatal hernia 2. Faint esophageal varices 3. Mild chronic gastritis Plan: I will follow-up the biopsies and disaccharidase assay. We will discuss treatment options of the patient's ongoing heartburn and reflux. The patient did have very faint esophageal varices. The patient's CAT scan and April 2024 showed mild fatty infiltration of the liver. I will obtain [facility] FibroSure testing.
[2025-07-19 12:06] VITALS: BP 115/72; PULSE 78; RESP 18; TEMP 36.6; O2SAT 97
[2025-07-19] MEDS: LACTATED RINGERS 1000ML 1,000 ML 50 ML IV (12:18)
--- NOTE | 2025-07-19 12:51 | P.PNANES_ITS ---
[facility] Disclaimer: The information contained in this section may have been updated after the patient was seen, as this information can be updated by other users. 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 Have you lived/traveled outside [place] in past 30 days?: No Contact w/someone who lives/traveled outside [place] past 30 days?: No Exposure to someone with infectious disease in past 14 days?: No Do you have a fever (greater than 100.4 F or 38 C)?: No Have you tested positive for COVID-19?: No Exposed to someone with COVID-19 in past 14 days?: No Do you have a sore throat?: No Do you have a cough?: No Do you have any weakness?: No Are you experiencing any nausea/vomitting?: No Do you have any diarrhea?: No Are you experiencing any unusual bleeding?: No Do you have any muscle aches/pain?: No Do you have any abdominal pain?: No Are you experiencing loss of taste or smell?: No [facility] Anesthesia Checklist Patient Identification Patient Identification: Verbal (Name & ) Structural Data Admitted From: Home Planned Operative Procedure/s: egd Consent for Planned Operative Procedure(s) Verified: Yes NPO Status Verified Time NPO: 00:00 Airway Assessment Mallampati Score:: Class II C-Spine Mobility Assessed: Yes TMJ Mobility Assessed: Yes Dentition: Partials Neurological Assessment Level of Consciousness: Awake, Alert and Appropriate Anesthesia Plan Anesthesia Risk discussed: Yes Anesthesia Plan: Verified ASA Class: II Anesthesia Type: MAC
[2025-07-19 13:30] VITALS: BP 150/61; PULSE 85; RESP 18; TEMP 36.6; O2SAT 94
[2025-07-19 13:40] VITALS: BP 96/66; PULSE 77; RESP 18; TEMP 36.6; O2SAT 94
[2025-07-19 13:50] VITALS: BP 106/88; PULSE 91; RESP 18; TEMP 36.6; O2SAT 95
[2025-07-19 14:00] VITALS: BP 110/74; PULSE 93; RESP 18; TEMP 36.6; O2SAT 97
[2025-07-22 05:09] LABS: ALT (SGPT) P5P 42 IU/L (0-55); AST (SGOT) P5P 34 IU/L (0-40); Alpha 2-Macroglobulins, Qn 131 mg/dL (110-276); Bilirubin, Total 0.5 mg/dL (0.0-1.2); Cholesterol, Total 149 mg/dL (100-199); GGT 35 IU/L (0-65); Glucose 95 mg/dL (70-99); Triglycerides 170 mg/dL (0-149)
[2025-07-22 13:15] LABS: Interpretation Notes (.); Lactase 2.81 (>/= 14.0); Maltase 140.61 (>/= 110.0); Palatinase 10.54 (>/= 8.5); Reference Notes (.); Sucrase 33.04 (>/= 25.0)
== END 2025-07-19 14:18 | disposition home or self-care (01) ==
PROVIDERS: PCP Family Medicine; Visit Provider Internal Medicine Gastroenterology
PROC: 0DJ08ZZ Inspection of Upper Intestinal Tract, Via Natural or Artificial Opening Endoscopic (ICD-10-PCS; CPT 43239; principal; 2025-07-19 15:00)
DX: K21.9 Gastro-esophageal reflux disease without esophagitis (principal); K29.70 Gastritis, unspecified, without bleeding; K22.4 Dyskinesia of esophagus; K44.9 Diaphragmatic hernia without obstruction or gangrene; I85.00 Esophageal varices without bleeding; F17.210 Nicotine dependence, cigarettes, uncomplicated; J45.909 Unspecified asthma, uncomplicated; Z87.442 Personal history of urinary calculi
CPT/HCPCS: 43239; 36415; 82172; 82247; 82465; 82657; 82947; 82977; 83010; 83521; 84450; 84460; 84478; J2003; J2704; J7120